=== PATIENT | female | born 1945 | race Caucasian/White ===

== ENCOUNTER 2020-10-05 12:30 | Inpatient (IN) ==
[~2020-10-05 12:30] MED LIST: OPTIRAY 320 125ml IV ONE
[2020-10-05] MEDS ORDERED: SODIUM CHLORIDE 0.9% 1000ML 500 ML IV ONE ×2 (13:02→14:30)
--- NOTE | 2020-10-05 13:02 | CT Scan Report ---
CT head/brain wo con CLINICAL HISTORY: Stroke Like Symptoms RIGHT FACIAL DROOP COMPARISON STUDY: 09/30/2020 TECHNIQUE: Axial CT of the brain is performed from the vertex to the skull base. IV contrast was not administered for this examination. A dose lowering technique was utilized adhering to the principles of ALARA. CT DOSE: FINDINGS: No intra or extra-axial mass lesions are visualized. There is no CT evidence of acute cortical infarc tion. There is no evidence of midline shift. There is no acute hemorrhage. No calvarial fractures ar e visualized. There are patchy white matter hypodensities likely on a small vessel basis. There is no evidence of pathologic ventricular dilatation. There is no evidence of acute sinusitis There is a metallic foreign body within the left orbit. The patient appears be status post a left ocu lar banding procedure. IMPRESSION: 1. Suboptimal examination with significant motion degradation. 2. No acute intracranial findings given the technical limitations of the study 3. Metallic foreign body within the left orbit ACT 112: Negative or not required by law. Electronically signed by: Leeroy Alcantar M.D. 10/05/2020 1:01 PM
--- NOTE | 2020-10-05 13:06 | CT Scan Report ---
HEAD & NECK CTA HISTORY: Right-sided facial droop. Stroke Like Symptoms TECHNIQUE: Multiaxial CT images of the head were performed following the intravenous administration o f contrast to evaluate the major cerebral vessels. Multiaxial CT images of the neck were also perform ed following the intravenous administration of contrast to evaluate the major cervical vessels. Maxim um intensity projection images were also obtained. A dose lowering technique was utilized adhering to the principles of ALARA. COMPARISON: Head CT 09/30/2020. FINDINGS: Significant motion artifact. No high-grade stenosis or occlusion within the intracranial internal car otid arteries, distal vertebral arteries, and basilar. No high-grade stenosis or occlusion seen withi n the bilateral ACAs, MCAs, or rejogger. Focal fenestration seen within the distal intracranial portion o f the right vertebral artery. This is considered to be a normal variant. The aortic arch and proximal great vessels are widely patent. There is no significant stenosis, occ lusion, or dissection identified within the bilateral common carotid, internal carotid, or left verte bral artery. Mild focal stenosis at the takeoff of the right vertebral artery. There is mild calcifie d plaque within the bilateral carotid bifurcations. A 4 cm left thyroid nodule. IMPRESSION: 1. Significant motion artifact within the brain. No definite high-grade stenosis or occlusion within the [place]. 2. No significant stenosis, occlusion, or dissection identified within the carotid or left vertebral arteries. Mild focal narrowing at the takeoff of the right vertebral artery. 3. A 4 cm left thyroid nodule. ACT 112: Negative or not required by law. . Electronically signed by: Sameer Aguero M.D. 10/05/2020 1:05 PM
--- NOTE | 2020-10-05 13:06 | CT Scan Report ---
HEAD & NECK CTA HISTORY: Right-sided facial droop. Stroke Like Symptoms TECHNIQUE: Multiaxial CT images of the head were performed following the intravenous administration o f contrast to evaluate the major cerebral vessels. Multiaxial CT images of the neck were also perform ed following the intravenous administration of contrast to evaluate the major cervical vessels. Maxim um intensity projection images were also obtained. A dose lowering technique was utilized adhering to the principles of ALARA. COMPARISON: Head CT 09/30/2020. FINDINGS: Significant motion artifact. No high-grade stenosis or occlusion within the intracranial internal car otid arteries, distal vertebral arteries, and basilar. No high-grade stenosis or occlusion seen withi n the bilateral ACAs, MCAs, or dietary manager. Focal fenestration seen within the distal intracranial portion o f the right vertebral artery. This is considered to be a normal variant. The aortic arch and proximal great vessels are widely patent. There is no significant stenosis, occ lusion, or dissection identified within the bilateral common carotid, internal carotid, or left verte bral artery. Mild focal stenosis at the takeoff of the right vertebral artery. There is mild calcifie d plaque within the bilateral carotid bifurcations. A 4 cm left thyroid nodule. IMPRESSION: 1. Significant motion artifact within the brain. No definite high-grade stenosis or occlusion within the [place]. 2. No significant stenosis, occlusion, or dissection identified within the carotid or left vertebral arteries. Mild focal narrowing at the takeoff of the right vertebral artery. 3. A 4 cm left thyroid nodule. ACT 112: Negative or not required by law. . Electronically signed by: Sameer Aguero M.D. 10/05/2020 1:05 PM
[2020-10-05 13:16] LABS: Basophils # (auto) 0.01 K/uL (0-0.2); Basophils % (auto) 0.1 %; Eosinophils # (auto) 0.05 K/uL (0-0.5); Eosinophils % (auto) 0.6 %; Hematocrit (blood only) 41.2 % (37-47); Hemoglobin 13.3 g/dL (12.0-16.0); Immature Granulocytes # (auto) 0.04 K/uL (0.00-0.02); Immature Granulocytes % (auto) 0.4 %; Lymphocytes # (auto) 1.01 K/uL (1.2-3.4); Lymphocytes % (auto) 11.2 %; Mean Corpuscular Hemoglobin 29.3 pg (25-34); Mean Corpuscular Hgb Conc 32.3 g/dL (32-36); Mean Corpuscular Volume 90.7 fL (80-100); Mean Platelet Volume 9.7 fL (7.4-10.4); Monocytes # (auto) 0.56 K/uL (0.11-0.59); Monocytes % (auto) 6.2 %; Neutrophils # (auto) 7.33 K/uL (1.4-6.5); Neutrophils % (auto) 81.5 %; Platelet Count 281 K/uL (130-400); RDW Coefficient of Variation 14.3 % (11.5-14.5); RDW Standard Deviation 47.9 fL (36.4-46.3); Red Blood Count 4.54 M/uL (4.2-5.4)
[2020-10-05] MEDS ORDERED: MEROPENEM 500 MG in SYRINGE 0 ML IV STA (13:25)
[2020-10-05 13:41] LABS: INR 1.2 (0.9-1.1); Partial Thromboplastin Ratio 0.9; Partial Thromboplastin Time 23.8 Seconds (21.0-31.0)
[2020-10-05 13:52] LABS: Alanine Aminotransferase 17 U/L (12-78); Albumin Globulin Ratio 0.8 (0.9-2); Alkaline Phosphatase 83 U/L (45-117); Aspartate Aminotransferase 24 U/L (15-37); BUN Creatinine Ratio 12.6 (10-20); Bilirubin,Total 0.5 mg/dl (0.2-1); Blood Urea Nitrogen 15 mg/dl (7-18); Calcium 9.3 mg/dl (8.5-10.1); Carbon Dioxide 26 mmol/L (21-32); Chloride 108 mmol/L (98-107); Creatinine Clr Calc Pharmacy 34.7 ml/min; Est GFR (Non-African American) 43.1; Globulin 3.6 gm/dl (2.5-4.0); Glucose 115 mg/dl (70-99); Magnesium 2.2 mg/dl (1.8-2.4); Potassium 4.3 mmol/L (3.5-5.1); Sodium 139 mmol/L (136-145); Total Protein 6.6 gm/dl (6.4-8.2); Troponin I < 0.015 ng/ml (0-0.045)
[2020-10-05] MEDS: SODIUM CHLORIDE 0.9% 1000ML 1,000 ML IV SCH ×2 (13:53→20:17)
--- NOTE | 2020-10-05 14:03 | Emergency Department Note ---
Impression & Plan Acute alteration in mental status, Urinary tract infection, Acute hypotension, COVID-19 virus detected ED Provider Note NAME: HEIDI HOPKINS AGE: 75 SEX: F : 1945 ARRIVES VIA: Ambulance INFORMANT: Patient, prehospital personnel as well as the inpatient rehab documentation. I also discussed the patient's condition with her daughter ED PROVIDER(S): Ashwin Ross DO CHIEF COMPLAINT: Strokelike symptoms HPI: The patient is a 75-year-old female who presented to the emergency department from [facility] for an evaluation of strokelike symptoms. The patient has a history of paroxysmal atrial fibrillation. She also was recently diagnosed with COVID-19 and has a history of recurrent urinary tract infections. She is taking amoxicillin for the urinary tract infection. The patient is receiving enoxaparin at the inpatient rehab. Her last dose was last evening. The patient was in her normal state of health and was at physical therapy at approximately 1045 this morning. She was noted to have an acute alteration in h er mental status where she became less responsive and was noted to have right facial droop as well as right upper extremity weakness. The patient initially was observed because she is had similar symptoms in the past. When her symptoms did not rapidly improve 911 was called. The patient was evaluated by the prehospital personnel and was made a stroke alert prior to arrival. The patient was taken directly to CT. On my initial evaluation which occurred in CAT scan the patient had a right-sided facial droop. She appeared to have very pressured and slurred speech. At that time she was moving both upper and lower extremities well. She has a history of dementia and [facility] I called the patient's daughter while we are in CAT scan. We started to have a conversation about TPA if we felt the patient was a candidate however her condition rapidly improved. The patient herself denies having any headache nausea or vomiting. There is been no reported falls. She denies have any abdominal pain or lower extremity weakness. She was recently placed out of quarantine for Covid. ROS: See above HPI for pertinent positives & negatives. A total of 10 systems reviewed and were otherwise negative. PAST MEDICAL HISTORY: See Below PAST SURGICAL HISTORY: See Below FAMILY HISTORY: See Below SOCIAL HISTORY: See Below HOME MEDICATIONS: See Below ALLERGIES: See Below VITALS: See Below PHYSICAL EXAMINATION: GENERAL: The patient is listless and slow to respond to question. She does follow loud verbal commands slowly and appropriately. EYES: The conjunctivae are clear. The pupils are round and reactive. EARS, NOSE, MOUTH AND THROAT: The nose is without any evidence of any deformity. There is some buccal mucosal swelling on the right cheek. NECK: The neck is nontender and supple. RESPIRATORY: Normal respiratory effort is noted there is no evidence of wheezing rhonchi or rales CARDIOVASCULAR: Tachycardic and irregular heart sounds were noted to auscultation. No definite murmur was noted. GASTROINTESTINAL: The abdomen is soft. Abdomen is nontender. MUSCULOSKELETAL/EXTREMITIES: There is no evidence of gross deformity full range of motion is noted in the hips and shoulders. SKIN: Pedal edema was noted bilaterally. NEUROLOGIC: Patient is awake to loud verbal commands. She is oriented to person place but not time or situation. There is no drift noted in the upper extremities. Anesthesiologist Attending strength is symmetric. There is a right-sided facial droop sparing the forehead. MEDICAL DECISION MAKING: The patient is a 75-year-old female who presented to the emergency department for an evaluation of strokelike symptoms. The patient was made a stroke alert prior to arrival. She would not be a candidate for TPA given her current use of anticoagulation. She does have a history of atrial fibrillation so formal stroke alert was called and the patient had CT as well as CT angiography of the head and neck. There is no large vessel occlusion. There was no abnormality noted on CT of the head without contrast. The patient was discussed with the stroke alert neurologist at [facility]. While we were discussing the case the patient's condition slowly improved after IV fluids. She has a persistent urinary tract infection and was started on IV antibiotics in the emergency department. Her condition continued to improve. I did discuss her condition with her daughter twice. I was even able to face time the patient with her daughter and her symptoms appear to be significantly improved and her daughter would not like her to have TPA at this time even if she was a candidate for it. It was noted at that time that the patient may have some buccal mucosal swelling. There is no signs of infection otherwise. 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 The patient was further treated with IV fluids. Her Covid swab is still positive. Triage Nursing notes reviewed. Prior medical records reviewed Vital Signs: reviewed and remarkable for hypotension and tachycardia. Differential diagnosis: Infection, dehydration, metabolic abnormality, hypo/hyperglycemia, electrolyte disturbance, anemia, hypoxia, cardiac sources, intracerebral event, toxicologic, neurologic, as well as other pathologies. ER treatment provided: See below Diagnostics interpreted by me: ECG: EKG was obtained in the emergency department. My interpretation is atrial fibrillation at 123 bpm. There were no PVCs noted. Diffuse inferior and lateral ST depressions were noted. This was compared to a tracing from September 302019. There is an increase in the ventricular rate. The ST segment abnormalities appear more pronounced compared to the previous tracing. Cardiac Monitoring: An order was placed for continuous cardiac monitoring. The monitor shows a rate of 115 bpm with atrial fibrillation rhythm. Laboratory studies: As stated above and show below. Imaging studies: See below Consultation(s): 1255: I discussed this case with Dr. Starr who is on-call for the [place] telestroke neurology group. She evaluated the patient via the telestroke cart. 1250 and 1320: I discussed the patient's condition with her daughter Mae. Initially we talked about TPA and whether or not her mother was a candidate for this. I discussed the benefits and the risks as well as the possible indications. At this time her daughter would not like her to receive TPA because she feels this is more likely secondary to urinary tract infection. I do agree with that assessment at this time. I told her that if other information were to arise we could further discuss the possibility of TPA although given the patient's use of enoxaparin that was found by the ED pharmacist I do not feel she would be a candidate for TPA either way. I also was able to face time the patient with her daughter via telephone. She feels the patient's condition is improving rapidly and I agree. 1430: I discussed this case with Annmarie who is on-call for the [facility] hospitalist group. They have agreed to evaluate the patient in the emergency department for further management and disposition. 1500: I discussed this case with Dr. Silveira. ED COURSE: Procedures: none PDMP:reviewed and no issues Critical Care: I have personally spent greater than 45 minutes of critical care time in the direct management of this patient. This includes bedside care, interpretation of diagnostic studies, and testing, discussion with consultants, patient, and family members, and other required patient management activities. This 45 minutes is in excess of all separately billable procedures. Past Med/Surg History Medical History Acute hypokalemia Anemia Atrial fibrillation COVID-19 virus infection Malaise Mood disorder Surgical History H/O lumbosacral spine surgery Social History Smoking Status: Unknown if ever smoked Feels Safe at Home: Yes Results & Data (ED) Vital Signs Vital Signs - 24 hr 10/05/20 12:58 10/05/20 13:02 10/05/20 13:30 Temperature 37.4 C Temperature Source Oral Pulse Rate 138 H 101 H Pulse Rate from SpO2 Sensor 134 H 102 H Respiratory Rate 23 20 Blood Pressure 98/70 L 111/67 Blood Pressure Mean 75 79 Pulse Oximetry 93 92 Oxygen Delivery Method Room Air Room Air Sepsis Recent Fever Within 48 Hours No Sepsis New/Unexplained Change in Mental Status Yes Sepsis Action Taken by Nursing No Action Required 10/05/20 14:21 10/05/20 14:30 Temperature Temperature Source Pulse Rate 109 H 107 H Pulse Rate from SpO2 Sensor 104 H 107 H Respiratory Rate 28 H 19 Blood Pressure 92/58 L 102/49 L Blood Pressure Mean 75 54 Pulse Oximetry 94 92 Oxygen Delivery Method Room Air Room Air Sepsis Recent Fever Within 48 Hours Sepsis New/Unexplained Change in Mental Status Sepsis Action Taken by Long Term Medications Current Medication List: was personally reviewed by me Laboratory Data Attestation: I reviewed the patient's lab results. Result diagrams: 10/05/20 13:07 10/05/20 13:07 Lab Results 10/05/20 10/05/20 10/05/20 Range/Units 13:01 13:07 13:07 WBC 9.00 (4.8-10.8) K/uL RBC 4.54 (4.2-5.4) M/uL Hgb 13.3 (12.0-16.0) g/dL Hct 41.2 (37-47) % MCV 90.7 (80-100) fL MCH 29.3 (25-34) pg MCHC 32.3 (32-36) g/dL RDW Std Deviation 47.9 H (36.4-46.3) fL RDW Coeff of Arnav 14.3 (11.5-14.5) % Plt Count 281 (130-400) K/uL MPV 9.7 (7.4-10.4) fL Immature Gran % (Auto) 0.4 % Neut % (Auto) 81.5 % Lymph % (Auto) 11.2 % [place] % (Auto) 6.2 % Eos % (Auto) 0.6 % Baso % (Auto) 0.1 % Neut # (Auto) 7.33 H (1.4-6.5) K/uL Lymph # (Auto) 1.01 L (1.2-3.4) K/uL [place] # (Auto) 0.56 (0.11-0.59) K/uL Eos # (Auto) 0.05 (0-0.5) K/uL Baso # (Auto) 0.01 (0-0.2) K/uL Immature Gran # (Auto) 0.04 H (0.00-0.02) K/uL PT 13.0 H (9.0-12.0) Seconds INR 1.2 H (0.9-1.1) APTT 23.8 (21.0-31.0) Seconds PTT Ratio 0.9 Sodium (136-145) mmol/L Potassium (3.5-5.1) mmol/L Chloride (98-107) mmol/L Carbon Dioxide (21-32) mmol/L Anion Gap (3-11) BUN (7-18) mg/dl Creatinine (0.6-1.2) mg/dl Est Cr Clr Drug Dosing ml/min Est GFR ( Amer) Est GFR (Non-Af Amer) BUN/Creatinine Ratio (10-20) Glucose (70-99) mg/dl POC Glucose 125 H (70-99) mg/dl Lactate (0.4-2.0) mmol/L Calcium (8.5-10.1) mg/dl Magnesium (1.8-2.4) mg/dl Total Bilirubin (0.2-1) mg/dl AST (15-37) U/L ALT (12-78) U/L Alkaline Phosphatase (45-117) U/L Troponin I (0-0.045) ng/ml Total Protein (6.4-8.2) gm/dl Albumin (3.4-5.0) gm/dl Globulin (2.5-4.0) gm/dl Albumin/Globulin Ratio (0.9-2) Specimen Hemolysis Urine Color Urine Appearance (Clear) Urine pH (4.5-7.5) Ur Specific [place] (1.000-1.030) Urine Protein (Negative) Urine Glucose (UA) (Negative) Urine Ketones (Negative) Urine Blood (Negative) Urine Nitrite (Negative) Urine Bilirubin (Negative) Urine Urobilinogen (Negative) Ur Leukocyte Esterase (Negative) [place] (0.6-1.2) mmol/L SARS-CoV-2, RNA, NAAT (NEGATIVE) SARS-CoV-2 Ag (Rapid) (Negative) Blood Type Recheck 10/05/20 10/05/20 10/05/20 Range/Units 13:07 13:07 13:09 WBC (4.8-10.8) K/uL RBC (4.2-5.4) M/uL Hgb (12.0-16.0) g/dL Hct (37-47) % MCV (80-100) fL MCH (25-34) pg MCHC (32-36) g/dL RDW Std Deviation (36.4-46.3) fL RDW Coeff of Arnav (11.5-14.5) % Plt Count (130-400) K/uL MPV (7.4-10.4) fL Immature Gran % (Auto) % Neut % (Auto) % Lymph % (Auto) % [place] % (Auto) % Eos % (Auto) % Baso % (Auto) % Neut # (Auto) (1.4-6.5) K/uL Lymph # (Auto) (1.2-3.4) K/uL [place] # (Auto) (0.11-0.59) K/uL Eos # (Auto) (0-0.5) K/uL Baso # (Auto) (0-0.2) K/uL Immature Gran # (Auto) (0.00-0.02) K/uL PT (9.0-12.0) Seconds INR (0.9-1.1) APTT (21.0-31.0) Seconds PTT Ratio Sodium 139 (136-145) mmol/L Potassium 4.3 (3.5-5.1) mmol/L Chloride 108 H (98-107) mmol/L Carbon Dioxide 26 (21-32) mmol/L Anion Gap 5.0 (3-11) BUN 15 (7-18) mg/dl Creatinine 1.21 H (0.6-1.2) mg/dl Est Cr Clr Drug Dosing 34.7 ml/min Est GFR ( Amer) 50.0 Est GFR (Non-Af Amer) 43.1 BUN/Creatinine Ratio 12.6 (10-20) Glucose 115 H (70-99) mg/dl POC Glucose (70-99) mg/dl Lactate (0.4-2.0) mmol/L Calcium 9.3 (8.5-10.1) mg/dl Magnesium 2.2 (1.8-2.4) mg/dl Total Bilirubin 0.5 (0.2-1) mg/dl AST 24 (15-37) U/L ALT 17 (12-78) U/L Alkaline Phosphatase 83 (45-117) U/L Troponin I < 0.015 (0-0.045) ng/ml Total Protein 6.6 (6.4-8.2) gm/dl Albumin 3.0 L (3.4-5.0) gm/dl Globulin 3.6 (2.5-4.0) gm/dl Albumin/Globulin Ratio 0.8 L (0.9-2) Specimen Hemolysis Urine Color Urine Appearance (Clear) Urine pH (4.5-7.5) Ur Specific [place] (1.000-1.030) Urine Protein (Negative) Urine Glucose (UA) (Negative) Urine Ketones (Negative) Urine Blood (Negative) Urine Nitrite (Negative) Urine Bilirubin (Negative) Urine Urobilinogen (Negative) Ur Leukocyte Esterase (Negative) [place] 0.9 (0.6-1.2) mmol/L SARS-CoV-2, RNA, NAAT (NEGATIVE) SARS-CoV-2 Ag (Rapid) (Negative) Blood Type Recheck A Positive 10/05/20 10/05/20 10/05/20 Range/Units 13:45 13:52 14:00 WBC (4.8-10.8) K/uL RBC (4.2-5.4) M/uL Hgb (12.0-16.0) g/dL Hct (37-47) % MCV (80-100) fL MCH (25-34) pg MCHC (32-36) g/dL RDW Std Deviation (36.4-46.3) fL RDW Coeff of Arnav (11.5-14.5) % Plt Count (130-400) K/uL MPV (7.4-10.4) fL Immature Gran % (Auto) % Neut % (Auto) % Lymph % (Auto) % [place] % (Auto) % Eos % (Auto) % Baso % (Auto) % Neut # (Auto) (1.4-6.5) K/uL Lymph # (Auto) (1.2-3.4) K/uL [place] # (Auto) (0.11-0.59) K/uL Eos # (Auto) (0-0.5) K/uL Baso # (Auto) (0-0.2) K/uL Immature Gran # (Auto) (0.00-0.02) K/uL PT (9.0-12.0) Seconds INR (0.9-1.1) APTT (21.0-31.0) Seconds PTT Ratio Sodium (136-145) mmol/L Potassium (3.5-5.1) mmol/L Chloride (98-107) mmol/L Carbon Dioxide (21-32) mmol/L Anion Gap (3-11) BUN (7-18) mg/dl Creatinine (0.6-1.2) mg/dl Est Cr Clr Drug Dosing ml/min Est GFR ( Amer) Est GFR (Non-Af Amer) BUN/Creatinine Ratio (10-20) Glucose (70-99) mg/dl POC Glucose (70-99) mg/dl Lactate (0.4-2.0) mmol/L Calcium (8.5-10.1) mg/dl Magnesium (1.8-2.4) mg/dl Total Bilirubin (0.2-1) mg/dl AST (15-37) U/L ALT (12-78) U/L Alkaline Phosphatase (45-117) U/L Troponin I (0-0.045) ng/ml Total Protein (6.4-8.2) gm/dl Albumin (3.4-5.0) gm/dl Globulin (2.5-4.0) gm/dl Albumin/Globulin Ratio (0.9-2) Specimen Hemolysis Urine Color Dark Yellow Urine Appearance Turbid A (Clear) Urine pH 7.0 (4.5-7.5) Ur Specific [place] 1.027 (1.000-1.030) Urine Protein 1+ H (Negative) Urine Glucose (UA) Negative (Negative) Urine Ketones Trace H (Negative) Urine Blood 1+ H (Negative) Urine Nitrite Negative (Negative) Urine Bilirubin Negative (Negative) Urine Urobilinogen Negative (Negative) Ur Leukocyte Esterase 3+ H (Negative) [place] (0.6-1.2) mmol/L SARS-CoV-2, RNA, NAAT POSITIVE A* (NEGATIVE) SARS-CoV-2 Ag (Rapid) Positive A* (Negative) Blood Type Recheck 10/05/20 Range/Units 14:20 WBC (4.8-10.8) K/uL RBC (4.2-5.4) M/uL Hgb (12.0-16.0) g/dL Hct (37-47) % MCV (80-100) fL MCH (25-34) pg MCHC (32-36) g/dL RDW Std Deviation (36.4-46.3) fL RDW Coeff of Arnav (11.5-14.5) % Plt Count (130-400) K/uL MPV (7.4-10.4) fL Immature Gran % (Auto) % Neut % (Auto) % Lymph % (Auto) % [place] % (Auto) % Eos % (Auto) % Baso % (Auto) % Neut # (Auto) (1.4-6.5) K/uL Lymph # (Auto) (1.2-3.4) K/uL [place] # (Auto) (0.11-0.59) K/uL Eos # (Auto) (0-0.5) K/uL Baso # (Auto) (0-0.2) K/uL Immature Gran # (Auto) (0.00-0.02) K/uL PT (9.0-12.0) Seconds INR (0.9-1.1) APTT (21.0-31.0) Seconds PTT Ratio Sodium (136-145) mmol/L Potassium (3.5-5.1) mmol/L Chloride (98-107) mmol/L Carbon Dioxide (21-32) mmol/L Anion Gap (3-11) BUN (7-18) mg/dl Creatinine (0.6-1.2) mg/dl Est Cr Clr Drug Dosing ml/min Est GFR ( Amer) Est GFR (Non-Af Amer) BUN/Creatinine Ratio (10-20) Glucose (70-99) mg/dl POC Glucose (70-99) mg/dl Lactate 1.5 (0.4-2.0) mmol/L Calcium (8.5-10.1) mg/dl Magnesium (1.8-2.4) mg/dl Total Bilirubin (0.2-1) mg/dl AST (15-37) U/L ALT (12-78) U/L Alkaline Phosphatase (45-117) U/L Troponin I (0-0.045) ng/ml Total Protein (6.4-8.2) gm/dl Albumin (3.4-5.0) gm/dl Globulin (2.5-4.0) gm/dl Albumin/Globulin Ratio (0.9-2) Specimen Hemolysis Urine Color Urine Appearance (Clear) Urine pH (4.5-7.5) Ur Specific [place] (1.000-1.030) Urine Protein (Negative) Urine Glucose (UA) (Negative) Urine Ketones (Negative) Urine Blood (Negative) Urine Nitrite (Negative) Urine Bilirubin (Negative) Urine Urobilinogen (Negative) Ur Leukocyte Esterase (Negative) [place] (0.6-1.2) mmol/L SARS-CoV-2, RNA, NAAT (NEGATIVE) SARS-CoV-2 Ag (Rapid) (Negative) Blood Type Recheck Administered Medications Sodium Chloride (Nss 1000ml) 1,000 mls @ 50 mls/hr IV .Q20H EMILY Stop: 11/04/20 12:29 Last Admin: 10/05/20 13:53 Dose: 50 mls/hr Documented by: [id number] Discontinued Medications Sodium Chloride (Nss 1000ml) 500 mls @ 999 mls/hr IV .Q31M ONE Stop: 10/05/20 13:32 Last Infusion: 10/05/20 13:53 Dose: 0 mls/hr Documented by: [id number] Admin: 10/05/20 13:15 Dose: 999 mls/hr Documented by: [id number] Meropenem 500 mg/ Syringe 10 mls @ 2 mls/min IV NOW STA; Protocol Stop: 10/05/20 13:29 Last Admin: 10/05/20 14:10 Dose: 2 mls/min Documented by: [id number] Sodium Chloride (Nss 1000ml) 500 mls @ 999 mls/hr IV .Q31M ONE Stop: 10/05/20 15:00 Last Admin: 10/05/20 14:37 Dose: 999 mls/hr Documented by: [id number] Ioversol (Optiray 320 125ml) 119 ml IV ONCE ONE Stop: 10/05/20 12:31 Last Admin: 10/05/20 12:31 Dose: 119 ml Documented by: [id number] Imaging Data Radiologist's Impression: Patient: HEIDI HOPKINS Admit Date: 10/05/20 MR#: [id number] Address1: [address] [facility] Acct ID:[id number] Address2: Date: 1945 [facility] Zip: [place] [address] Age: 75 Location: ED Sex: F Room/Bed: Att Phy: Diagnosis: Right facial 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 Stroke Like Symptoms TECHNIQUE: Multiaxial CT images of the head were performed following the intravenous administration of contrast to evaluate the major cerebral vessels. Multiaxial CT images of the neck were also performed following the intravenous administration of contrast to evaluate the major cervical vessels. Maximum intensity projection images were also obtained. A dose lowering technique was u tilized adhering to the principles of ALARA. COMPARISON: Head CT 09/30/2020. FINDINGS: Significant motion artifact. No high-grade stenosis or occlusion within the intracranial internal carotid arteries, distal vertebral arteries, and basilar. No high-grade stenosis or occlusion seen within the bilateral ACAs, MCAs, or supplier specialist. Focal fenestration seen within the distal intracranial portion of the right vertebral artery. This is considered to be a normal variant. The aortic arch and proximal great vessels are widely patent. There is no significant stenosis, occlusion, or dissection identified within the bilateral common carotid, internal carotid, or left vertebral artery. Mild focal stenosis at the takeoff of the right vertebral artery. There is mild calcified plaque within the bilateral carotid bifurcations. A 4 cm left thyroid nodule. IMPRESSION: 1. Significant motion artifact within the brain. No definite high-grade stenosis or occlusion within the [place]. 2. No significant stenosis, occlusion, or dissection identified within the carotid or left vertebral arteries. Mild focal narrowing at the takeoff of the right vertebral artery. 3. A 4 cm left thyroid nodule. ACT 112: Negative or not required by law. . Electronically signed by: Sameer Aguero M.D. 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 IV contrast was not administered for this examination. A dose lowering technique was utilized adhering to the principles of ALARA. CT DOSE: FINDINGS: No intra or extra-axial mass lesions are visualized. There is no CT evidence of acute cortical infarction. There is no evidence of midline shift. There is no acute hemorrhage. No calvarial fractures are visualized. There are patchy white matter hypodensities likely on a small vessel basis. There is no evidence of pathologic ventricular dilatation. There is no evidence of acute sinusitis There is a metallic foreign body within the left orbit. The patient appears be status post a left ocular banding procedure. IMPRESSION: 1. Suboptimal examination with significant motion degradation. 2. No acute intracranial findings given the technical limitations of the study 3. Metallic foreign body within the left orbit ACT 112: Negative or not required by law. Electronically signed by: Leeroy Alcantar M.D. 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 [Primary Care Provider] - Discharge Problem: Urinary tract infection Qualifiers: Urinary tract infection type: site unspecified Hematuria presence: without hematuria Qualified Code(s): N39.0 - Urinary tract infection, site not specified
--- NOTE | 2020-10-05 14:35 | XRay Report ---
XR chest 1V portable HISTORY: Right-sided facial droop. Stroke Like Symptoms COMPARISON: Chest 09/30/2020. FINDINGS: There are low lung volumes. No pneumothorax. No pleural effusions. There is slight progress ion of the perihilar interstitial vascular thickening consistent with mild congestive change. The hea rt remains mildly enlarged. There is a small to moderate hiatus hernia. Thoracic spinal fusion rods a re again noted. There are old, healed right-sided rib fractures. IMPRESSION: 1. Cardiomegaly with mild central pulmonary vascular congestion without overt edema. 2. Low lung volumes. ACT 112: Negative or not required by law. Electronically signed by: Sameer Aguero M.D. 10/05/2020 2:34 PM
[2020-10-05 14:40] LABS: Appearance Urine Turbid (Clear); Bacteria Urine Automated Negative (Negative); Bilirubin Urine Negative (Negative); Blood Urine 1+ (Negative); Color Urine Dark Yellow; Epithelial Cell Urine Auto >30 /lpf (0-5); Glucose Urine UA Negative (Negative); Ketones Urine Trace (Negative); Leukocyte Esterase Urine 3+ (Negative); Nitrite Urine Negative (Negative); Protein Urine 1+ (Negative); Specific Gravity Urine 1.027 (1.000-1.030); Urobilinogen Urine Negative (Negative); WBC Urine Automated >30 /hpf (0-5)
[2020-10-05 15:51] LABS: Cast Urine Automated 0 /lpf (0-5)
--- NOTE | 2020-10-05 16:38 | History & Physical Report ---
Date of Service October 05, 2020 Assessment & Plan (1) Stroke-like symptoms: Presented with acute onset of right-sided weakness and right-sided facial droop while working with physical therapy at the rehab Right-sided weakness improved rapidly, right facial droop may be chronic as per daughter CT angiogram head and neck negative CT head negative Blood pressures were actually low when she arrived Telemetry stroke consult did not recommend TPA as she had been on Lovenox SQ and had rapid improvement of symptoms With altered mental status which may be due to UTI versus stroke -Admit to PCU, Covid unit due to recent infection -Start Plavix in the morning Speech therapy consultation, PT/OT Neuro consult Neuro checks and daily NIH scale Continue atorvastatin, check lipid panel and hemoglobin A1c in the morning Permissive hypertension-hold all BP meds except giving Lopressor for rate con trol with possible atrial fibrillation as below -Continue normal saline at 125 mL's per hour -Check MRI brain (2) Acute metabolic encephalopathy: Secondary to stroke versus UTI as above Treating UTI Stroke work-up as above Has a long history of encephalopathy as per daughter every time she has UTI (3) Urinary tract infection: Abnormal urinalysis Has a history of ESBL E. coli UTI and recent Enterococcus UTI Continue with meropenem Follow cultures Needs follow-up with urology as an outpatient after discharge for recurrent UTIs Holding home prophylactic Cipro and nitrofurantoin (4) Atrial fibrillation: With suspected rapid atrial fibrillation on ECG on arrival No chest pain, troponin is negative Rate control with IV Lopressor 2.5 mg IV every 6 hours until taking her usual p.o. metoprolol Daughter reports that she had atrial fibrillation and was on Eliquis for about 2 months last year but then was taken off of it as per cardiology as it was decided she had lone A. fib from the stress of the hospitalization for UTI at that time -Hold off on anticoagulation at this time due to possible acute stroke until after MRI is obtained and in consultation with neurology and cardiology -Monitor on telemetry -Checking echocardiogram (5) COVID-19 virus infection: Diagnosed on 09/25, has not really had many symptoms at all except for poor appetite as per daughter and some altered mental status at times which may have been from Covid versus UTI Precautions at least until tomorrow would be day 10 Can consider removing precautions at that time Chest x-ray without pneumonia, she is not hypoxic (6) Recurrent UTI: As above Needs follow-up with urology as an outpatient (7) HTN (hypertension), benign: Holding home meds as above except metoprolol (8) Hyperlipidemia: Continue statin Checking lipid panel in the morning (9) Osteopenia: Noted With history of pelvic and hip fractures (10) Bipolar disorder: Continue home meds once can take p.o. (11) DVT prophylaxis: Lovenox SQ, SCDs Disposition-admit to PCU telemetry History of Present Illness Chief Complaint: Right-sided weakness, altered mental status Primary Care Provider: [facility] This patient is a 75-year-old female with a history of spinal fusion surgery in the end of August, paroxysmal atrial fibrillation no longer on anticoagulation, HTN, osteopenia, depression and bipolar disorder, pneumonia, and severe numerous recurrent UTIs. She had spinal fusion surgery the beginning of August and went to [facility]hab in [place] for 2 weeks. She then went home for 24 hours and returned to the hospital with altered mental status and had a UTI for which she was admitted. She then was discharged to [facility] in [facility] where she has been for the 3 weeks. She developed Covid- 19 with a positive test on 09/25. She was asymptomatic with this for the most part as per notes from the rehab without fevers or hypoxia, however she has had some altered mental status intermittently there and confusion. Her daughter reports to me on the phone that the patient is perfectly mentally clear when she does not have a urinary tract infection, however she has had 10 urinary tract infections in the last year alone. She has been in and out of the hospital multiple times with this. The daughter also reports and insists that the patient has been extensively tested for dementia and does not have dementia including having brain imaging and neuropsychological testing at her doctor in [place] where she resided until 1 year ago. She was recently treated for an ESBL E. coli UTI with levofloxacin a few weeks ago and then also had an Enterococcus UTI at the rehab where she was being treated with amoxicillin for the last couple of days. Today, around 11 AM, she was noted to have right-sided weakness and a right- sided facial droop. The daughter reports the patient always has somewhat of a right facial droop but weakness on the right would be new. She was brought in as a stroke alert to the ER and was completely confused. She is not able to tell me any history at all but does denies pain anywhere, specifically chest pain and headache. Because she was on subcu Lovenox for DVT prophylaxis and because of the rapid improvement in right-sided weakness-she was able to move the right side of her body when she got in the ER-she was not a candidate for TPA as per telemetry stroke consultation. CT of the head was negative, CT angiogram of the head neck was negative in the ER. She was found to have UTI and abnormal urinalysis. Her ECG was with possible rapid atrial fibrillation versus accelerated junctional rhythm and PACs with some lateral ST depression. As per the ER doctor, she did have significant improvement in her mental status with being given IV fluids. She was also given IV meropenem for her UTI. Her Covid test was still positive at this time. Ultimately, the telemetry stroke neurologist felt this was more likely consistent with a toxic metabolic syndrome rather than a stroke. She will be admitted for stroke work-up and continued treatment of her acute metabolic encephalopathy and UTI as well as for suspected rapid atrial fibrillation. Allergies Allergy/AdvReac Type Severity Reaction Status Date / Time aspirin Allergy Unknown Unverified 10/05/20 15:59 Home Medications Medication Instructions Recorded Confirmed Type acetaminophen [Tylenol] 650 mg PO Q4H PRN 10/05/20 10/05/20 History amlodipine 10 mg PO QAM 10/05/20 10/05/20 History amoxicillin 250 mg PO TID 10/05/20 10/05/20 History ascorbic acid (vitamin C) 500 mg PO BID 10/05/20 10/05/20 History atorvastatin 10 mg PO PM 10/05/20 10/05/20 History bisacodyl 10 mg MN DAILY PRN 10/05/20 10/05/20 History bupropion HCl 300 mg PO QAM 10/05/20 10/05/20 History cholecalciferol (vitamin D3) 50 mcg PO DAILY 10/05/20 10/05/20 History ciprofloxacin HCl [Cipro] 250 mg PO QAM 10/05/20 10/05/20 History diazepam 2 mg PO QID PRN 10/05/20 10/05/20 History docusate sodium 100 mg PO BID 10/05/20 10/05/20 History enoxaparin 40 mg SUBCUT QPM 10/05/20 10/05/20 History famotidine 20 mg PO QAM 10/05/20 10/05/20 History guaifenesin [Mucinex] 600 mg PO BID 10/05/20 10/05/20 History lisinopril 20 mg PO QAM 10/05/20 10/05/20 History lithium carbonate 300 mg PO HS 10/05/20 10/05/20 History magnesium hydroxide [Milk Of 30 ml PO DAILY PRN 10/05/20 10/05/20 History Magnesia Concentrated] melatonin 3 mg PO HS 10/05/20 10/05/20 History metoprolol tartrate 25 mg PO BID 10/05/20 10/05/20 History nitrofurantoin macrocrystal 100 mg PO HS 10/05/20 10/05/20 History ondansetron HCl 4 mg PO Q4H PRN 10/05/20 10/05/20 History pantoprazole 40 mg PO QAM 10/05/20 10/05/20 History polyethylene glycol 3350 17 g PO DAILY 10/05/20 10/05/20 History sennosides-docusate sodium 1 tab-cap PO .@LUNCH 10/05/20 10/05/20 History [Senokot-S] sertraline 100 mg PO QAM 10/05/20 10/05/20 History zinc sulfate 220 mg PO QAM 10/05/20 10/05/20 History Past Med/Surg History Medical History Anemia Atrial fibrillation Bipolar disorder COVID-19 virus infection HTN (hypertension), benign Hyperlipidemia Malaise Mood disorder Osteopenia Recurrent UTI Surgical History (Updated 10/05/20 @ 23:38 by Renetta Silveira MD) H/O lumbosacral spine surgery History of detached retina repair History of hysterectomy History of repair of hip fracture Family History Other Family history non-contributory Social History Smoking Status: Never smoker Hx Alcohol Use: No Hx Substance Use: No Current Living Situation: Family Current Living Situation Comment: Currently in rehab, but usually lives with her daughter Feels Safe at Home: Yes Review of Systems Review of Systems: All systems reviewed & are unremarkable except as noted in HPI & below Physical Exam Constitutional: well developed, + ill appearing and + disheveled; no acute distress Unable to follow many commands consistently Eyes: PERRL, conjunctivae normal, anicteric sclerae ENMT: external ear and nose normal, oropharynx normal Ears: no hearing impairment Positive right-sided facial droop, no swelling of the lips or cheeks Neck: trachea midline, no thyromegaly Respiratory: normal respiratory effort, lungs clear to auscultation Cardiovascular: Rate/Rhythm: + tachycardic and + irregularly irregular Heart Sounds: no murmur Extremities: no calf tenderness and no edema Chest (Breasts): Chest: normal inspection of chest Gastrointestinal (Abdomen): normal bowel sounds, soft, nontender, no hepatosplenomegaly Musculoskeletal: Extremities: extremities normal to inspection; no cyanosis and no clubbing Skin: no rashes, warm and dry Neurologic: moves all extremities, + focal motor deficit (4/5 strength of the right upper extremity, otherwise 5/5 throughout) and awake; + CN's not intact (Unable to cooperate for testing, but does have right-sided facial droop ) Negative pronator drift of the upper extremities Psychiatric: Orientation: alert (But intermittently drowsy) and oriented to person; + not oriented to place and + not oriented to time Eye Contact: + fair eye contact Affect: + flat affect Genitourinary: Khalil catheter with dark yellow urine Lymphatic: no lymphedema Results & Data Results & Data ([facility]) Vital Signs (Past 12 Hours) Vital Signs Temp Pulse Resp BP Pulse Ox 10/05/20 16:01 105 H 24 112/76 97 10/05/20 16:00 103 H 18 98 10/05/20 15:30 20 10/05/20 15:01 110 H 24 94 10/05/20 15:00 83 21 120/65 93 10/05/20 14:30 107 H 19 102/49 L 92 10/05/20 14:21 109 H 28 H 92/58 L 94 10/05/20 13:30 101 H 20 111/67 92 10/05/20 13:02 138 H 23 98/70 L 93 10/05/20 12:58 37.4 C Laboratory Results 12/16/20 12/16/20 12/16/20 Range/Units 14:20 14:00 13:52 WBC (4.8-10.8) K/uL RBC (4.2-5.4) M/uL Hgb (12.0-16.0) g/dL Hct (37-47) % MCV (80-100) fL MCH (25-34) pg MCHC (32-36) g/dL RDW Std Deviation (36.4-46.3) fL RDW Coeff of Arnav (11.5-14.5) % Plt Count (130-400) K/uL MPV (7.4-10.4) fL Immature Gran % (Auto) % Neut % (Auto) % Lymph % (Auto) % Gilchrist % (Auto) % Eos % (Auto) % Baso % (Auto) % Neut # (Auto) (1.4-6.5) K/uL Lymph # (Auto) (1.2-3.4) K/uL Gilchrist # (Auto) (0.11-0.59) K/uL Eos # (Auto) (0-0.5) K/uL Baso # (Auto) (0-0.2) K/uL Immature Gran # (Auto) (0.00-0.02) K/uL PT (9.0-12.0) Seconds INR (0.9-1.1) APTT (21.0-31.0) Seconds PTT Ratio Sodium (136-145) mmol/L Potassium (3.5-5.1) mmol/L Chloride (98-107) mmol/L Carbon Dioxide (21-32) mmol/L Anion Gap (3-11) BUN (7-18) mg/dl Creatinine (0.6-1.2) mg/dl Est Cr Clr Drug Dosing ml/min Est GFR ( Amer) Est GFR (Non-Af Amer) BUN/Creatinine Ratio (10-20) Glucose (70-99) mg/dl POC Glucose (70-99) mg/dl Lactate 1.5 (0.4-2.0) mmol/L Calcium (8.5-10.1) mg/dl Magnesium (1.8-2.4) mg/dl Total Bilirubin (0.2-1) mg/dl AST (15-37) U/L ALT (12-78) U/L Alkaline Phosphatase (45-117) U/L Troponin I (0-0.045) ng/ml Total Protein (6.4-8.2) gm/dl Albumin (3.4-5.0) gm/dl Globulin (2.5-4.0) gm/dl Albumin/Globulin Ratio (0.9-2) Specimen Hemolysis Urine Color Urine Appearance (Clear) Urine pH (4.5-7.5) Ur Specific [place] (1.000-1.030) Urine Protein (Negative) Urine Glucose (UA) (Negative) Urine Ketones (Negative) Urine Blood (Negative) Urine Nitrite (Negative) Urine Bilirubin (Negative) Urine Urobilinogen (Negative) Ur Leukocyte Esterase (Negative) Urine WBC (Auto) (0-5) /hpf Urine RBC (Auto) (0-4) /hpf U Hyaline Cast (Auto) (0-5) /lpf U Epithel Cells (Auto) (0-5) /lpf Urine Bacteria (Auto) (Negative) Urine Yeast Urine Sperm [place] (0.6-1.2) mmol/L SARS-CoV-2, RNA, NAAT POSITIVE A* (NEGATIVE) SARS-CoV-2 Ag (Rapid) Positive A* (Negative) Blood Type Recheck 10/05/20 10/05/20 10/05/20 Range/Units 13:45 13:09 13:07 WBC (4.8-10.8) K/uL RBC (4.2-5.4) M/uL Hgb (12.0-16.0) g/dL Hct (37-47) % MCV (80-100) fL MCH (25-34) pg MCHC (32-36) g/dL RDW Std Deviation (36.4-46.3) fL RDW Coeff of Arnav (11.5-14.5) % Plt Count (130-400) K/uL MPV (7.4-10.4) fL Immature Gran % (Auto) % Neut % (Auto) % Lymph % (Auto) % Gilchrist % (Auto) % Eos % (Auto) % Baso % (Auto) % Neut # (Auto) (1.4-6.5) K/uL Lymph # (Auto) (1.2-3.4) K/uL [place]christ # (Auto) (0.11-0.59) K/uL Eos # (Auto) (0-0.5) K/uL Baso # (Auto) (0-0.2) K/uL Immature Gran # (Auto) (0.00-0.02) K/uL PT (9.0-12.0) Seconds INR (0.9-1.1) APTT (21.0-31.0) Seconds PTT Ratio Sodium (136-145) mmol/L Potassium (3.5-5.1) mmol/L Chloride (98-107) mmol/L Carbon Dioxide (21-32) mmol/L Anion Gap (3-11) BUN (7-18) mg/dl Creatinine (0.6-1.2) mg/dl Est Cr Clr Drug Dosing ml/min Est GFR ( Amer) Est GFR (Non-Af Amer) BUN/Creatinine Ratio (10-20) Glucose (70-99) mg/dl POC Glucose (70-99) mg/dl Lactate (0.4-2.0) mmol/L Calcium (8.5-10.1) mg/dl Magnesium (1.8-2.4) mg/dl Total Bilirubin (0.2-1) mg/dl AST (15-37) U/L ALT (12-78) U/L Alkaline Phosphatase (45-117) U/L Troponin I (0-0.045) ng/ml Total Protein (6.4-8.2) gm/dl Albumin (3.4-5.0) gm/dl Globulin (2.5-4.0) gm/dl Albumin/Globulin Ratio (0.9-2) Specimen Hemolysis Urine Color Dark Yellow Urine Appearance Turbid A (Clear) Urine pH 7.0 (4.5-7.5) Ur Specific [place] 1.027 (1.000-1.030) Urine Protein 1+ H (Negative) Urine Glucose (UA) Negative (Negative) Urine Ketones Trace H (Negative) Urine Blood 1+ H (Negative) Urine Nitrite Negative (Negative) Urine Bilirubin Negative (Negative) Urine Urobilinogen Negative (Negative) Ur Leukocyte Esterase 3+ H (Negative) Urine WBC (Auto) >30 H (0-5) /hpf Urine RBC (Auto) 5-10 H (0-4) /hpf U Hyaline Cast (Auto) 0 (0-5) /lpf U Epithel Cells (Auto) >30 H (0-5) /lpf Urine Bacteria (Auto) Negative (Negative) Urine Yeast Not Reportable Urine Sperm Not Reportable [place] 0.9 (0.6-1.2) mmol/L SARS-CoV-2, RNA, NAAT (NEGATIVE) SARS-CoV-2 Ag (Rapid) (Negative) Blood Type Recheck A Positive 10/05/20 10/05/20 10/05/20 Range/Units 13:07 13:07 13:07 WBC 9.00 (4.8-10.8) K/uL RBC 4.54 (4.2-5.4) M/uL Hgb 13.3 (12.0-16.0) g/dL Hct 41.2 (37-47) % MCV 90.7 (80-100) fL MCH 29.3 (25-34) pg MCHC 32.3 (32-36) g/dL RDW Std Deviation 47.9 H (36.4-46.3) fL RDW Coeff of Arnav 14.3 (11.5-14.5) % Plt Count 281 (130-400) K/uL MPV 9.7 (7.4-10.4) fL Immature Gran % (Auto) 0.4 % Neut % (Auto) 81.5 % Lymph % (Auto) 11.2 % Gilchrist % (Auto) 6.2 % Eos % (Auto) 0.6 % Baso % (Auto) 0.1 % Neut # (Auto) 7.33 H (1.4-6.5) K/uL Lymph # (Auto) 1.01 L (1.2-3.4) K/uL Gilchrist # (Auto) 0.56 (0.11-0.59) K/uL Eos # (Auto) 0.05 (0-0.5) K/uL Baso # (Auto) 0.01 (0-0.2) K/uL Immature Gran # (Auto) 0.04 H (0.00-0.02) K/uL PT 13.0 H (9.0-12.0) Seconds INR 1.2 H (0.9-1.1) APTT 23.8 (21.0-31.0) Seconds PTT Ratio 0.9 Sodium 139 (136-145) mmol/L Potassium 4.3 (3.5-5.1) mmol/L Chloride 108 H (98-107) mmol/L Carbon Dioxide 26 (21-32) mmol/L Anion Gap 5.0 (3-11) BUN 15 (7-18) mg/dl Creatinine 1.21 H (0.6-1.2) mg/dl Est Cr Clr Drug Dosing 34.7 ml/min Est GFR ( Amer) 50.0 Est GFR (Non-Af Amer) 43.1 BUN/Creatinine Ratio 12.6 (10-20) Glucose 115 H (70-99) mg/dl POC Glucose (70-99) mg/dl Lactate (0.4-2.0) mmol/L Calcium 9.3 (8.5-10.1) mg/dl Magnesium 2.2 (1.8-2.4) mg/dl Total Bilirubin 0.5 (0.2-1) mg/dl AST 24 (15-37) U/L ALT 17 (12-78) U/L Alkaline Phosphatase 83 (45-117) U/L Troponin I < 0.015 (0-0.045) ng/ml Total Protein 6.6 (6.4-8.2) gm/dl Albumin 3.0 L (3.4-5.0) gm/dl Globulin 3.6 (2.5-4.0) gm/dl Albumin/Globulin Ratio 0.8 L (0.9-2) Specimen Hemolysis Urine Color Urine Appearance (Clear) Urine pH (4.5-7.5) Ur Specific [place] (1.000-1.030) Urine Protein (Negative) Urine Glucose (UA) (Negative) Urine Ketones (Negative) Urine Blood (Negative) Urine Nitrite (Negative) Urine Bilirubin (Negative) Urine Urobilinogen (Negative) Ur Leukocyte Esterase (Negative) Urine WBC (Auto) (0-5) /hpf Urine RBC (Auto) (0-4) /hpf U Hyaline Cast (Auto) (0-5) /lpf U Epithel Cells (Auto) (0-5) /lpf Urine Bacteria (Auto) (Negative) Urine Yeast Urine Sperm [place] (0.6-1.2) mmol/L SARS-CoV-2, RNA, NAAT (NEGATIVE) SARS-CoV-2 Ag (Rapid) (Negative) Blood Type Recheck 10/05/20 Range/Units 13:01 WBC (4.8-10.8) K/uL RBC (4.2-5.4) M/uL Hgb (12.0-16.0) g/dL Hct (37-47) % MCV (80-100) fL MCH (25-34) pg MCHC (32-36) g/dL RDW Std Deviation (36.4-46.3) fL RDW Coeff of Arnav (11.5-14.5) % Plt Count (130-400) K/uL MPV (7.4-10.4) fL Immature Gran % (Auto) % Neut % (Auto) % Lymph % (Auto) % Gilchrist % (Auto) % Eos % (Auto) % Baso % (Auto) % Neut # (Auto) (1.4-6.5) K/uL Lymph # (Auto) (1.2-3.4) K/uL Gilchrist # (Auto) (0.11-0.59) K/uL Eos # (Auto) (0-0.5) K/uL Baso # (Auto) (0-0.2) K/uL Immature Gran # (Auto) (0.00-0.02) K/uL PT (9.0-12.0) Seconds INR (0.9-1.1) APTT (21.0-31.0) Seconds PTT Ratio Sodium (136-145) mmol/L Potassium (3.5-5.1) mmol/L Chloride (98-107) mmol/L Carbon Dioxide (21-32) mmol/L Anion Gap (3-11) BUN (7-18) mg/dl Creatinine (0.6-1.2) mg/dl Est Cr Clr Drug Dosing ml/min Est GFR ( Amer) Est GFR (Non-Af Amer) BUN/Creatinine Ratio (10-20) Glucose (70-99) mg/dl POC Glucose 125 H (70-99) mg/dl Lactate (0.4-2.0) mmol/L Calcium (8.5-10.1) mg/dl Magnesium (1.8-2.4) mg/dl Total Bilirubin (0.2-1) mg/dl AST (15-37) U/L ALT (12-78) U/L Alkaline Phosphatase (45-117) U/L Troponin I (0-0.045) ng/ml Total Protein (6.4-8.2) gm/dl Albumin (3.4-5.0) gm/dl Globulin (2.5-4.0) gm/dl Albumin/Globulin Ratio (0.9-2) Specimen Hemolysis Urine Color Urine Appearance (Clear) Urine pH (4.5-7.5) Ur Specific [place] (1.000-1.030) Urine Protein (Negative) Urine Glucose (UA) (Negative) Urine Ketones (Negative) Urine Blood (Negative) Urine Nitrite (Negative) Urine Bilirubin (Negative) Urine Urobilinogen (Negative) Ur Leukocyte Esterase (Negative) Urine WBC (Auto) (0-5) /hpf Urine RBC (Auto) (0-4) /hpf U Hyaline Cast (Auto) (0-5) /lpf U Epithel Cells (Auto) (0-5) /lpf Urine Bacteria (Auto) (Negative) Urine Yeast Urine Sperm [place] (0.6-1.2) mmol/L SARS-CoV-2, RNA, NAAT (NEGATIVE) SARS-CoV-2 Ag (Rapid) (Negative) Blood Type Recheck Diagnostic Findings CTA head/neck: IMPRESSION: 1. Significant motion artifact within the brain. No definite high-grade stenosis or occlusion within the [place]. 2. No significant stenosis, occlusion, or dissection identified within the carotid or left vertebral arteries. Mild focal narrowing at the takeoff of the right vertebral artery. 3. A 4 cm left thyroid nodule. Chest [id number] with mild central pulmonary vascular congestion without overt edema, low lung volumes Head CT noncontrast: IMPRESSION: 1. Suboptimal examination with significant motion degradation. 2. No acute intracranial findings given the technical limitations of the study 3. Metallic foreign body within the left orbit Code Status & VTE Plan Code Status Full code VTE Prophylaxis Plan VTE Prophylaxis will be ordered: Yes PG Care Time/CCT Total # of Minutes Spent Total Time Spent with Patient: Total time spent is greater than 50% in coordination of care (as documented) at patient's floor/unit and/or counseling patient: Coding Level of Care Code 50756 Initial Inpt Care Lvl 3 Diagnoses Stroke-like symptoms R29.90 Acute metabolic encephalopathy G93.41 Urinary tract infection N39.0 Hematuria presence: without hematuria Urinary tract infection type: site unspecified Atrial fibrillation I48.91 COVID-19 virus infection U07.1 Recurrent UTI N39.0 HTN (hypertension), benign I10 Hyperlipidemia E78.5 Osteopenia M85.80 Bipolar disorder F31.9 DVT prophylaxis Z29.9 (1) Urinary tract infection Hematuria presence: without hematuria Urinary tract infection type: site unspecified Qualified Code(s): N39.0 - Urinary tract infection, site not specified
[2020-10-05] MEDS ORDERED: POLYETHYLENE (MIRALAX) 17 GM PACK PO PRN (19:16)
[2020-10-05] MEDS ORDERED: ACETAMINOPHEN 325 MG TAB PO PRN (19:16)
[2020-10-05] MEDS ORDERED: bisacodyL 10 MG SUPP PR PRN (19:16)
[2020-10-05] MEDS ORDERED: ONDANSETRON INJ 2 MG/ML 2 ML VIAL IV PRN (19:16)
[2020-10-05] MEDS ORDERED: diazePAM 2 MG TABLET PO PRN (19:16)
[2020-10-05] MEDS ORDERED: MEROPENEM CONSULT ACITVE PRN (19:16)
[2020-10-05] MEDS ORDERED: PHARMACIST DISCHARGE MED REC CONSULT PRN (19:16)
[2020-10-05] MEDS ORDERED: MAGNESIUM HYDROXIDE SUSP 30 ML UDC PO PRN (19:37)
[2020-10-05] MEDS: CLOPIDOGREL BISULFATE 75 MG TAB PO SCH (22:34)
[2020-10-05] MEDS: LITHIUM CARBONATE 300 MG TAB PO SCH (22:35)
[2020-10-05] MEDS: ASCORBIC ACID 500 MG TAB PO SCH (22:35)
[2020-10-05] MEDS: ATORVASTATIN 10 MG TAB PO SCH (22:35)
[2020-10-05] MEDS: DOCUSATE SODIUM 100 MG CAP PO SCH (22:35)
[2020-10-05] MEDS: FAMOTIDINE 20 MG in SYRINGE 3 ML IV SCH (22:36)
[2020-10-05] MEDS: MEROPENEM 500 MG in SYRINGE 0 ML IV SCH (22:36)
[2020-10-06] MEDS: METOPROLOL TARTRATE 1 MG/ML VIAL IV SCH ×2 (00:59→05:58)
[2020-10-06] MEDS: MEROPENEM 500 MG in SYRINGE 0 ML IV SCH ×2 (05:58→14:49)
--- NOTE | 2020-10-06 06:49 | Electrocardiogram Report ---
Test Reason : Blood Pressure : / mmHG Vent. Rate : 123 BPM Atrial Rate : 123 BPM P-R Int : 000 ms QRS Dur : 076 ms QT Int : 286 ms P-R-T Axes : 000 -10 161 degrees QTc Int : 409 ms Atrial fibrillation with rapid ventricular response Possible Inferior infarct Abnormal ECG When compared with ECG of 30-SEP-2020 14:26, Atrial fibrillation has replaced Sinus rhythm Vent. rate has increased BY 57 BPM Inverted T waves have replaced nonspecific T wave abnormality in Anterior leads Confirmed by Stephan Rader ([id number]) on 10/06/2020 6:48:27 AM Referred By: REFERRED SELF Confirmed By:Stephan Rader
[2020-10-06 07:01] LABS: Eosinophils # (auto) 0.05 K/uL (0-0.5); Eosinophils % (auto) 0.6 %; Hematocrit (blood only) 40.6 % (37-47); Hemoglobin 12.8 g/dL (12.0-16.0); Immature Granulocytes # (auto) 0.02 K/uL (0.00-0.02); Immature Granulocytes % (auto) 0.2 %; Lymphocytes # (auto) 0.73 K/uL (1.2-3.4); Lymphocytes % (auto) 8.8 %; Mean Corpuscular Hemoglobin 28.7 pg (25-34); Mean Corpuscular Hgb Conc 31.5 g/dL (32-36); Mean Platelet Volume 9.8 fL (7.4-10.4); Monocytes # (auto) 0.73 K/uL (0.11-0.59); Monocytes % (auto) 8.8 %; Neutrophils % (auto) 81.6 %; Platelet Count 268 K/uL (130-400); RDW Coefficient of Variation 14.5 % (11.5-14.5); RDW Standard Deviation 48.8 fL (36.4-46.3); Red Blood Count 4.46 M/uL (4.2-5.4); White Blood Count 8.33 K/uL (4.8-10.8)
[2020-10-06 07:23] LABS: Estimated Average Glucose 97 mg/dl
--- NOTE | 2020-10-06 07:33 | Magnetic Resonance Report ---
MRI OF THE BRAIN WITHOUT CONTRAST CLINICAL HISTORY: Altered mental status. Evaluate for cerebrovascular accident. COMPARISON STUDY: Head CT and CTA of the head October 05, 2020. TECHNIQUE: Utilizing a 1.5 Irene magnet and dedicated coil, multiplanar, multiecho imaging of the bra in was performed without IV contrast. FINDINGS: This exam is mildly compromised by motion artifact. However, there is no restricted diffusi on to suggest acute infarct. No acute intracranial hemorrhage, midline shift or mass effect is presen t. Mild ventricular dilatation is likely due to atrophy. Basal cisterns are patent. There are no extr a-axial collections. Moderate white matter T2 hyperintense foci suggest small vessel disease. No intr acranial masses identified on this unenhanced examination. Flow-voids for the major intracranial vess els are present. Postoperative findings of the left globe are noted. Calvarial signal is normal. IMPRESSION: 1. No acute intracranial findings. 2. Exam mildly compromised by motion artifact. 3. Mild ventricular dilatation likely due to atrophy. 4. Moderate small vessel disease. ACT 112: Negative or not required by law. Electronically signed by: Wily Rothman M.D. 10/06/2020 7:32 AM
[2020-10-06 07:35] LABS: BUN Creatinine Ratio 17.4 (10-20); Calcium 9.2 mg/dl (8.5-10.1); Creatinine Clr Calc Pharmacy 55.5 ml/min; Est GFR (African American) 90.6; Est GFR (Non-African American) 78.1; Potassium 3.8 mmol/L (3.5-5.1)
[2020-10-06] MEDS ORDERED: METOPROLOL TARTRATE 1 MG/ML VIAL IV SCH (08:45)
[2020-10-06] MEDS: FAMOTIDINE 20 MG in SYRINGE 3 ML IV SCH (08:58)
[2020-10-06] MEDS ORDERED: ENOXAPARIN INJ 40 MG/0.4 ML SYR SQ SCH (09:00)
[2020-10-06] MEDS: buPROPion XL 300 MG TABCR PO SCH (11:44)
[2020-10-06] MEDS: CHOLECALCIFEROL 1,000 UNITS 25 MCG TAB PO SCH (11:44)
[2020-10-06] MEDS: FAMOTIDINE 20 MG TAB PO SCH (11:44)
[2020-10-06] MEDS: PANTOprazole 40 MG TAB PO SCH (11:44)
[2020-10-06] MEDS: ASCORBIC ACID 500 MG TAB PO SCH ×2 (11:44→22:30)
[2020-10-06] MEDS: DOCUSATE SODIUM 100 MG CAP PO SCH ×2 (11:44→22:30)
[2020-10-06] MEDS: SERTRALINE HCL 100 MG TABLET PO SCH (11:44)
[2020-10-06] MEDS: CLOPIDOGREL BISULFATE 75 MG TAB PO SCH (11:48)
[2020-10-06] MEDS ORDERED: NITROFURANTOIN MONOHYDRATE 100 MG CAP PO SCH (12:00)
[2020-10-06] MEDS ORDERED: APIXABAN 5 MG TABLET PO SCH (12:00)
[2020-10-06] MEDS ORDERED: METOPROLOL TARTRATE 25 MG TAB PO ONE (12:00)
[2020-10-06] MEDS: POTASSIUM CHLORIDE / WTR 10 MEQ/100 ML PLCT IV SCH ×2 (12:25→13:25)
[2020-10-06] MEDS ORDERED: METOPROLOL TARTRATE 1 MG/ML VIAL IV PRN (12:48)
[2020-10-06] MEDS: ENOXAPARIN INJ 60 MG/0.6 ML SYR SQ SCH (13:39)
[2020-10-06] MEDS: SODIUM CHLORIDE 0.9% 1000ML 1,000 ML IV SCH (18:13)
--- NOTE | 2020-10-06 19:41 | Hospitalist Progress Note ---
Date of Service October 06, 2020 Assessment & Plan (1) Stroke-like symptoms: Presented with acute onset of right-sided weakness and right-sided facial droop while working with physical therapy at the rehab Right-sided weakness improved rapidly, right facial droop may be chronic as per daughter CT angiogram head and neck negative CT head negative Blood pressures were actually low when she arrived Telemetry stroke consult did not recommend TPA as she had been on Lovenox SQ and had rapid improvement of symptoms MRI brain negative for stroke With altered mental status which may be due to UTI/metabolic encephalopathy Discussed care with neurologist who did not see her today due to Covid precautions-he stated that she most likely had a TIA and recommended therapeutic anticoagulation for her atrial fibrillation and no need for antiplatelet -Discontinue Plavix -Start Lovenox full dose 1 mg/KG every 12 hours until reliably taking p.o. and then will start Eliquis which she has been on in the past Speech therapy consultation, PT/OT evaluations appreciated Neuro consult appreciated Neuro checks and daily NIH scale Lipid panel with total cholesterol 120, LDL 53, HDL 35-continue atorvastatin 10 mg once daily Hemoglobin A1c normal at 5.0% Permissive hypertension-hold all BP meds except giving Lopressor for rate control with atrial fibrillation as below -Continue normal saline but reduce to 100 mL/h (2) Acute metabolic encephalopathy: Secondary to UTI as stroke now ruled out Treating UTI Has a long history of encephalopathy as per daughter every time she has UTI Slightly improved today (3) Urinary tract infection: Abnormal urinalysis Has a history of ESBL E. coli UTI and recent Enterococcus UTI Continue with meropenem in case of ESBL E. coli and add nitrofurantoin for Enterococcus Follow cultures Needs follow-up with urology as an outpatient after discharge for recurrent UTIs Holding home prophylactic Cipro (4) Atrial fibrillation: With ongoing rapid atrial fibrillation on ECG and on telemetry No chest pain, troponin is negative Able to take p.o. at this point-restart home metoprolol 25 mg p.o. twice daily Daughter reports that she had atrial fibrillation and was on Eliquis for about 2 months last year but then was taken off of it as per cardiology as it was decided she had lone A. fib from the stress of the hospitalization for UTI at that time Stroke has been ruled out -Start therapeutic dosing of Lovenox and eventually transition Eliquis once reliably taking p.o. -Monitor on telemetry -Will defer echocardiogram until resolution of Covid-recommend either as an outpatient or later this admission (5) COVID-19 virus infection: Diagnosed on 09/25, has not really had many symptoms at all except for poor appetite as per daughter and some altered mental status at times which may have been from Covid versus UTI Precautions recommended until day 14 as per recommendations of infection pollution control technician-last day would be 10/09 Chest x-ray without pneumonia, she is not hypoxic (6) Recurrent UTI: As above Needs follow-up with urology as an outpatient (7) HTN (hypertension), benign: Holding home meds as above except metoprolol (8) Hyperlipidemia: Continue statin Lipid panel as above-we will discuss giving high intensity statin with neurology (9) Osteopenia: Noted With history of pelvic and hip fractures Continue vitamin D (10) Bipolar disorder: Continue home meds of sertraline, bupropion, lithium Check lithium level in the morning (11) DVT prophylaxis: Lovenox SQ, SCDs Disposition-continued stay on PCU telemetry Full code as per daughter Admission and Anticipated Discharge Date Admission Date: October 05, 2020 Subjective Pt remains lethargic but more alert today. Worked with speech therapy and was advanced to a pured diet however is still pocketing some food and not following commands well. She denied any pain. Telemetry with rapid atrial fibrillation with rates in the 1 teens to 120s. I discussed her case with cardiology and neurology-we will cancel cardiology consultation as she remains on Covid precautions and atrial fibrillation is being managed by myself. Review of Systems Review of Systems: Unobtainable due to cognitive status Physical Exam Constitutional: well developed, + ill appearing and + disheveled; no acute distress Eyes: PERRL, conjunctivae normal, anicteric sclerae ENMT: Ears: no hearing impairment Mouth: + oral mucosal abnormality (With some grayish-white exudate on the right side of tongue from food?) With right-sided facial droop Neck: trachea midline, no thyromegaly Respiratory: normal respiratory effort, lungs clear to auscultation Cardiovascular: Rate/Rhythm: + tachycardic and + irregularly irregular Heart Sounds: no murmur Extremities: no calf tenderness and no edema Chest (Breasts): Chest: normal inspection of chest Gastrointestinal (Abdomen): normal bowel sounds, soft, nontender, no hepatosplenomegaly Musculoskeletal: Extremities: extremities normal to inspection; no cyanosis and no clubbing Skin: no rashes, warm and dry Neurologic: moves all extremities, + focal motor deficit (4+/5 strength of the right upper extremity, otherwise 5/5 throughout), awake and + confused; + CN's not intact (Unable to cooperate for testing very well, but does have right-sided facial) Psychiatric: Orientation: alert (But intermittently drowsy) and oriented to person; + not oriented to place and + not oriented to time Eye Contact: + fair eye contact Affect: + flat affect Lymphatic: no lymphedema Results & Data Results & Data ([facility]) Vital Signs (Past 12 Hours) Vital Signs Temp Pulse Pulse Resp BP BP Pulse Ox 10/06/20 15:42 36.3 C L 103 H 119/83 91 10/06/20 11:06 36.5 C 114 H 20 122/77 93 10/06/20 08:56 122 H 112/77 10/06/20 08:00 108 H Laboratory Results 10/06/20 10/06/20 10/06/20 Range/Units 06:24 06:24 06:24 WBC 8.33 (4.8-10.8) K/uL RBC 4.46 (4.2-5.4) M/uL Hgb 12.8 (12.0-16.0) g/dL Hct 40.6 (37-47) % MCV 91.0 (80-100) fL MCH 28.7 (25-34) pg MCHC 31.5 L (32-36) g/dL RDW Std Deviation 48.8 H (36.4-46.3) fL RDW Coeff of [place]nav 14.5 (11.5-14.5) % Plt Count 268 (130-400) K/uL MPV 9.8 (7.4-10.4) fL Immature Gran % (Auto) 0.2 % Neut % (Auto) 81.6 % Lymph % (Auto) 8.8 % [place] % (Auto) 8.8 % Eos % (Auto) 0.6 % Baso % (Auto) 0.0 % Neut # (Auto) 6.80 H (1.4-6.5) K/uL Lymph # (Auto) 0.73 L (1.2-3.4) K/uL [place] # (Auto) 0.73 H (0.11-0.59) K/uL Eos # (Auto) 0.05 (0-0.5) K/uL Baso # (Auto) 0.00 (0-0.2) K/uL Immature Gran # (Auto) 0.02 (0.00-0.02) K/uL Sodium 144 (136-145) mmol/L Potassium 3.8 (3.5-5.1) mmol/L Chloride 114 H (98-107) mmol/L Carbon Dioxide 26 (21-32) mmol/L Anion Gap 5.0 (3-11) BUN 13 (7-18) mg/dl Creatinine 0.74 D (0.6-1.2) mg/dl Est Cr Clr Drug Dosing 55.5 ml/min Est GFR ( Amer) 90.6 Est GFR (Non-Af Amer) 78.1 BUN/Creatinine Ratio 17.4 (10-20) Glucose 92 (70-99) mg/dl Estimat Average Glucose 97 mg/dl Hemoglobin A1c 5.0 (4.5-5.6) % Calcium 9.2 (8.5-10.1) mg/dl Triglycerides 158 H (0-150) mg/dl Cholesterol 120 (0-200) mg/dl LDL Cholesterol, Calc 53 mg/dl VLDL Cholesterol, Calc 32 mg/dl HDL Cholesterol 35 mg/dl Cholesterol/HDL Ratio 3 PG Care Time/CCT Total # of Minutes Spent Total Time Spent with Patient: Total time spent is greater than 50% in coordination of care (as documented) at patient's floor/unit and/or counseling patient: Coding Level of Care Code 89522 Subseq Hosp Care Lvl 3 Diagnoses Stroke-like symptoms R29.90 Acute metabolic encephalopathy G93.41 Urinary tract infection N39.0 Hematuria presence: without hematuria Urinary tract infection type: site unspecified Atrial fibrillation I48.91 COVID-19 virus infection U07.1 Recurrent UTI N39.0 HTN (hypertension), benign I10 Hyperlipidemia E78.5 Osteopenia M85.80 Bipolar disorder F31.9 DVT prophylaxis Z29.9 (1) Urinary tract infection Hematuria presence: without hematuria Urinary tract infection type: site unspecified Qualified Code(s): N39.0 - Urinary tract infection, site not specified
[2020-10-06] MEDS: AMPICILLIN/SULBACTAM SOD 3,000 MG in 0.9 % SODIUM CHLORIDE 100 ML IV SCH (22:29)
[2020-10-06] MEDS: METOPROLOL TARTRATE 25 MG TAB PO SCH (22:30)
[2020-10-06] MEDS: ATORVASTATIN 10 MG TAB PO SCH (22:30)
[2020-10-06] MEDS: LITHIUM CARBONATE 300 MG TAB PO SCH (22:31)
[2020-10-07] MEDS: SODIUM CHLORIDE 0.9% 1000ML 1,000 ML IV SCH ×3 (01:06→16:53)
[2020-10-07] MEDS: ENOXAPARIN INJ 60 MG/0.6 ML SYR SQ SCH ×2 (01:06→12:39)
[2020-10-07] MEDS: AMPICILLIN/SULBACTAM SOD 3,000 MG in 0.9 % SODIUM CHLORIDE 100 ML IV SCH ×4 (05:01→21:43)
[2020-10-07 06:23] LABS: Eosinophils # (auto) 0.09 K/uL (0-0.5); Eosinophils % (auto) 1.6 %; Hematocrit (blood only) 36.1 % (37-47); Hemoglobin 11.2 g/dL (12.0-16.0); Immature Granulocytes # (auto) 0.01 K/uL (0.00-0.02); Immature Granulocytes % (auto) 0.2 %; Lymphocytes # (auto) 0.74 K/uL (1.2-3.4); Lymphocytes % (auto) 12.8 %; Mean Corpuscular Hemoglobin 28.6 pg (25-34); Mean Corpuscular Volume 92.3 fL (80-100); Mean Platelet Volume 9.6 fL (7.4-10.4); Monocytes # (auto) 0.61 K/uL (0.11-0.59); Monocytes % (auto) 10.5 %; Neutrophils # (auto) 4.34 K/uL (1.4-6.5); Neutrophils % (auto) 74.9 %; Platelet Count 230 K/uL (130-400); RDW Coefficient of Variation 14.6 % (11.5-14.5); RDW Standard Deviation 49.6 fL (36.4-46.3); Red Blood Count 3.91 M/uL (4.2-5.4); White Blood Count 5.79 K/uL (4.8-10.8)
[2020-10-07 06:56] LABS: BUN Creatinine Ratio 18.3 (10-20); Calcium 8.5 mg/dl (8.5-10.1); Creatinine Clr Calc Pharmacy 74.3 ml/min; Est GFR (African American) 104.2; Est GFR (Non-African American) 89.9; Potassium 3.6 mmol/L (3.5-5.1)
[2020-10-07] MEDS: POTASSIUM CHLORIDE / WTR 10 MEQ/100 ML PLCT IV SCH ×4 (08:33→12:38)
[2020-10-07] MEDS: DOCUSATE SODIUM 100 MG CAP PO SCH ×2 (08:34→21:41)
[2020-10-07] MEDS: ASCORBIC ACID 500 MG TAB PO SCH ×2 (08:35→21:41)
[2020-10-07] MEDS: buPROPion XL 300 MG TABCR PO SCH (08:35)
[2020-10-07] MEDS: FAMOTIDINE 20 MG TAB PO SCH (08:35)
[2020-10-07] MEDS: CHOLECALCIFEROL 1,000 UNITS 25 MCG TAB PO SCH (08:36)
[2020-10-07] MEDS: METOPROLOL TARTRATE 25 MG TAB PO SCH ×2 (08:36→21:41)
[2020-10-07] MEDS: PANTOprazole 40 MG TAB PO SCH (08:37)
[2020-10-07] MEDS: SERTRALINE HCL 100 MG TABLET PO SCH (08:37)
--- NOTE | 2020-10-07 08:49 | Neurology Consultation ---
Date of Consultation October 07, 2020 Assessment & Plan (1) TIA (transient ischemic attack): Probable TIA localizing to the left cerebral hemisphere occurring in the context of atrial fibrillation. Would recommend restarting Eliquis when patient is able to reliably take oral medication. Case discussed with Dr. Renetta Silveira. I did not directly examine this patient as she is in the COVID-19 unit. My assessment of her case is based on chart review and discussion with Dr. Renetta Silveira, her hospitalist physician. History of Present Illness Reason for Consultation: Concern for stroke Requesting Physician: Renetta Silveira MD Attending Physician: Renetta Silveira MD History of Present Illness The patient is a 75-year old female who was transferred to the emergency department on October [address] [facility] for further evaluation and management of acute onset alteration in mental status, diminished responsiveness, with associated right facial droop and weakness of the right arm. She was noted to have a right facial droop and alteration in speech with dysarthria during her assessment in the emergency department. Her history is notable for atrial fibrillation, spinal fusion this past August, dementia, recent COVID-19 infection, recurrent UTI, acute kidney failure, and a possible dental infection. Initial imaging including a CT of the head and CT angiogram of the head and neck were unremarkable. She did have a telestroke consultation with a specialist at [facility]. TPA was not recommended as her symptoms were improving and it was suggested that her presentation may have been consistent with a toxic metabolic syndrome rather than acute stroke. She was admitted to the COVID unit given her current positive COVID-19 status. A follow-up brain MRI was negative for acute findings. There is generalized atrophy with associated ventricular dilatation and chronic moderate small vessel ischemic disease. These findings were observed by the interpreting radiologist. I reviewed the images and agree. Electrocardiogram completed September 30, 2020 revealed a normal sinus rhythm. An ECG completed October 05, 2020 revealed atrial fibrillation with rapid ventricular response. This patient's right-sided weakness has improved and has been stable in the context of her current hospitalization although she does have chronic right facial weakness which has been noted by her daughter. She is currently on Lovenox. I had discussed her case yesterday with Dr. Silveira and suggested starting an oral anticoagulant as her history seems most consistent with TIA localizing to the left cerebral hemisphere, and occurring in the context of atrial fibrillation. She had been on Eliquis in the past and there are plans to restart this medication when she is able to reliably take oral medication. The above information was gathered from chart review and discussion with Dr. Silveira. Allergies Allergy/AdvReac Type Severity Reaction Status Date / Time aspirin Allergy Unknown Unverified 10/05/20 15:59 Home Medications Medication Instructions Recorded Confirmed Type acetaminophen [Tylenol] 650 mg PO Q4H PRN 10/05/20 10/05/20 History amlodipine 10 mg PO QAM 10/05/20 10/05/20 History amoxicillin 250 mg PO TID 10/05/20 10/05/20 History ascorbic acid (vitamin C) 500 mg PO BID 10/05/20 10/05/20 History atorvastatin 10 mg PO PM 10/05/20 10/05/20 History bisacodyl 10 mg LA DAILY PRN 10/05/20 10/05/20 History bupropion HCl 300 mg PO QAM 10/05/20 10/05/20 History cholecalciferol (vitamin D3) 50 mcg PO DAILY 10/05/20 10/05/20 History ciprofloxacin HCl [Cipro] 250 mg PO QAM 10/05/20 10/05/20 History diazepam 2 mg PO QID PRN 10/05/20 10/05/20 History docusate sodium 100 mg PO BID 10/05/20 10/05/20 History enoxaparin 40 mg SUBCUT QPM 10/05/20 10/05/20 History famotidine 20 mg PO QAM 10/05/20 10/05/20 History guaifenesin [Mucinex] 600 mg PO BID 10/05/20 10/05/20 History lisinopril 20 mg PO QAM 10/05/20 10/05/20 History lithium carbonate 300 mg PO HS 10/05/20 10/05/20 History magnesium hydroxide [Milk Of 30 ml PO DAILY PRN 10/05/20 10/05/20 History Magnesia Concentrated] melatonin 3 mg PO HS 10/05/20 10/05/20 History metoprolol tartrate 25 mg PO BID 10/05/20 10/05/20 History nitrofurantoin macrocrystal 100 mg PO HS 10/05/20 10/05/20 History ondansetron HCl 4 mg PO Q4H PRN 10/05/20 10/05/20 History pantoprazole 40 mg PO QAM 10/05/20 10/05/20 History polyethylene glycol 3350 17 g PO DAILY 10/05/20 10/05/20 History sennosides-docusate sodium 1 tab-cap PO .@LUNCH 10/05/20 10/05/20 History [Senokot-S] sertraline 100 mg PO QAM 10/05/20 10/05/20 History zinc sulfate 220 mg PO QAM 10/05/20 10/05/20 History Patient History Medical History Anemia Atrial fibrillation Bipolar disorder COVID-19 virus infection HTN (hypertension), benign Hyperlipidemia Malaise Mood disorder Osteopenia Recurrent UTI Surgical History H/O lumbosacral spine surgery History of detached retina repair History of hysterectomy History of repair of hip fracture Family History Other Family history non-contributory Social History Smoking Status: Never smoker Hx Alcohol Use: No Hx Substance Use: No Preferred Language: Uzbek Communication Ability Comment: patient unable to follow comands and non-verbal at this time 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0, triglycerides 158, cholesterol 120, LDL 53, VLDL 32, HDL 35, SARS-CoV-2 RNA and rapid antigen testing positive. Coding Level of Care Code None Diagnoses TIA (transient ischemic attack) G45.9
--- NOTE | 2020-10-07 21:15 | Hospitalist Progress Note ---
Date of Service October 07, 2020 Assessment & Plan (1) TIA (transient ischemic attack): Presented with acute onset of right-sided weakness and right-sided facial droop while working with physical therapy at the rehab Right-sided weakness improved rapidly and is now completely resolved, right facial droop may be chronic as per daughter, and is also related to dental infection as below CT angiogram head and neck negative CT head negative Blood pressures were actually low when she arrived Telemetry stroke consult did not recommend TPA as she had been on Lovenox SQ and had rapid improvement of symptoms MRI brain negative for stroke With altered mental status which may be due to UTI//dental infection/metabolic encephalopathy which is now improving Discussed care with neurologist who did not see her today due to Covid precautions-he stated that she most likely had a TIA and recommended therapeutic anticoagulation for her atrial fibrillation and no need for antiplatelet -Initially anticoagulated with Lovenox full dose 1 mg/KG every 12 hours however now she is reliably taking p.o.-we will start Eliquis at 5 mg p.o. twice daily in the morning Speech therapy consultation, PT/OT evaluations appreciated Neuro consult appreciated Neuro checks and daily NIH scale Lipid panel with total cholesterol 120, LDL 53, HDL 35-continue atorvastatin but increase to high intensity dose of 40 mg once daily Hemoglobin A1c normal at 5.0% -Previously held home antihypertensives for permissive hypertension, but now stroke ruled out-will control blood pressure by adding meds back on DC IV fluids (2) Dental infection: Noted to have right-sided cheek swelling on admission thought to be contributing to worsening right facial droop Swelling is now down and since her encephalopathy is improved and she is cooperative-she has a symmetrical smile on examination I was able to look inside her mouth adequately on 10/07 and she has a missing right mandibular molar with pus coming out of the empty socket Very poor dentition and daughter reports patient has not seen a dentist in 20 years -Continue Unasyn After off Covid precautions, recommend follow-up either inpatient or outpatient with [facility], Dr. Nehemiah Dawson No evidence of abscess or tenderness to palpation in the submandibular region (3) Acute metabolic encephalopathy: Secondary to UTI and possibly dental infection as stroke now ruled out Treating UTI and dental infection with Unasyn Has a long history of encephalopathy as per daughter every time she has UTI Significantly improved today, but does not seem to be quite back to her baseline as per description from daughter At baseline, daughter reports she is completely mentally clear "just like you and I." (4) Urinary tract infection: Abnormal urinalysis Has a history of ESBL E. coli UTI and recent Enterococcus UTI Cathed specimen urine culture here growing 10,000 CFU Streptococcus species which is most likely going to be another Enterococcus infection-of note, she was on 1 day of amoxicillin prior to admission Has Khalil catheter that was placed in the ER when she was encephalopathic-can likely remove this on Saturday morning now that she is able to cooperate and will be able to get out of bed to bedside commode Continue Unasyn and follow-up final urine culture Needs follow-up with urology as an outpatient after discharge for recurrent UTIs Holding home prophylactic Cipro (5) Atrial fibrillation: With ongoing rapid atrial fibrillation on ECG and on telemetry for the rst 2 days of admission Converted to normal sinus rhythm on the evening of 10/06 No chest pain, troponin is negative -Continue metoprolol 25 mg p.o. twice daily for rate control Daughter reports that she had atrial fibrillation and was on Eliquis for about 2 months last year but then was taken off of it as per cardiology as it was decided she had lone A. fib from the stress of a previous hospitalization for UTI at that time Stroke has been ruled out, but with TIA as above -Started therapeutic dosing of Lovenox and now will transition to Eliquis as she is taking p.o. -Continue to monitor on telemetry -Will defer echocardiogram until resolution of Covid-recommend either as an outpatient or later this admission (6) COVID-19 virus infection: Diagnosed on 09/25, has not really had many symptoms at all except for poor appetite as per daughter and some altered mental status at times which may have been from Covid versus UTI Precautions recommended until day 14 as per recommendations of infection classification control clerk-last day would be 10/09 Chest x-ray without pneumonia, she is not hypoxic (7) Recurrent UTI: As above, has had 10 UTIs in the last year all with ensuing metabolic encephalopathy as per daughter Needs follow-up with urology as an outpatient (8) HTN (hypertension), benign: Blood pressure is now elevated Restarting home amlodipine, lisinopril Continue home metoprolol (9) Hyperlipidemia: Continue statin Lipid panel as above-we will increase intensity of atorvastatin to 40 mg given the TIA (10) Osteopenia: Noted With history of pelvic and hip fractures Continue vitamin D (11) Bipolar disorder: Continue home meds of sertraline, bupropion, lithium Check lithium level in the morning (12) DVT prophylaxis: Destin Guerra Disposition-continued stay on PCU telemetry, but improving, will need to go back to acute rehab in the next 2 days or so PT/OT evaluations appreciated-recommend rehab Full code as per daughter Discussed her care with her daughter on the phone daily on 10/05, 10/06, and 10/07. She would appreciate a daily update if the attending has time Admission and Anticipated Discharge Date Admission Date: October 05, 2020 Subjective Patient is much improved today, much more alert and interactive. She is following all commands. She denies any chest pain or shortness of breath, denies abdominal pains. She denies tooth pain or pain in the right side of the face. On telemetry she converted to normal sinus rhythm yesterday evening and has been with a normal sinus rhythm in the 70s all day. She is drinking and eating today. Review of Systems Review of Systems: All systems reviewed & are unremarkable except as noted in HPI & below Physical Exam Constitutional: well developed; no acute distress Eyes: PERRL, conjunctivae normal, anicteric sclerae ENMT: Ears: + hearing impairment; no external ear abnormality Nose: no external nose abnormality Mouth: + oral mucosal abnormality (With white ulcer right buccal mucosa) With purulent drainage coming from missing lower right molar space Neck: trachea midline, no thyromegaly normal visual inspection No tenderness to palpation of mandible and submandibular regions, no masses or fluctuance, no erythema Respiratory: normal respiratory effort, lungs clear to auscultation Cardiovascular: RRR, no murmur, no edema Extremities: no calf tenderness and no edema Chest (Breasts): Chest: normal inspection of chest Gastrointestinal (Abdomen): normal bowel sounds, soft, nontender, no hepatosplenomegaly Musculoskeletal: Extremities: extremities normal to inspection; no cyanosis and no clubbing Skin: no rashes, warm and dry Neurologic: CN's II-XI intact bilaterally (No right facial droop, but with mild right cheek swelling), moves all extremities and awake; no focal motor deficits (Full strength throughout bilateral upper and lower extremities much improve) and not confused (Much more mentally clear today) Psychiatric: Orientation: alert, oriented to person and cooperative Eye Contact: + fair eye contact Affect: euthymic affect Lymphatic: no lymphedema Results & Data Results & Data ([facility]) Vital Signs (Past 12 Hours) Vital Signs Temp Pulse Resp BP Pulse Ox 10/07/20 15:35 36.4 C L 68 18 165/69 H 95 10/07/20 11:22 36.6 C 60 18 164/76 H 92 Laboratory Results 10/07/20 10/07/20 Range/Units 05:43 05:43 WBC 5.79 (4.8-10.8) K/uL RBC 3.91 L (4.2-5.4) M/uL Hgb 11.2 L (12.0-16.0) g/dL Hct 36.1 L (37-47) % MCV 92.3 (80-100) fL MCH 28.6 (25-34) pg MCHC 31.0 L (32-36) g/dL RDW Std Deviation 49.6 H (36.4-46.3) fL RDW Coeff of Anrav 14.6 H (11.5-14.5) % Plt Count 230 (130-400) K/uL MPV 9.6 (7.4-10.4) fL Immature Gran % (Auto) 0.2 % Neut % (Auto) 74.9 % Lymph % (Auto) 12.8 % [place] % (Auto) 10.5 % Eos % (Auto) 1.6 % Baso % (Auto) 0.0 % Neut # (Auto) 4.34 (1.4-6.5) K/uL Lymph # (Auto) 0.74 L (1.2-3.4) K/uL [place] # (Auto) 0.61 H (0.11-0.59) K/uL Eos # (Auto) 0.09 (0-0.5) K/uL Baso # (Auto) 0.00 (0-0.2) K/uL Immature Gran # (Auto) 0.01 (0.00-0.02) K/uL Sodium 145 (136-145) mmol/L Potassium 3.6 (3.5-5.1) mmol/L Chloride 114 H (98-107) mmol/L Carbon Dioxide 25 (21-32) mmol/L Anion Gap 6.0 (3-11) BUN 10 (7-18) mg/dl Creatinine 0.56 L (0.6-1.2) mg/dl Est Cr Clr Drug Dosing 74.3 ml/min Est GFR ( Amer) 104.2 Est GFR (Non-Af Amer) 89.9 BUN/Creatinine Ratio 18.3 (10-20) Glucose 66 L (70-99) mg/dl Calcium 8.5 (8.5-10.1) mg/dl Magnesium 2.0 (1.8-2.4) mg/dl PG Care Time/CCT Total # of Minutes Spent Total Time Spent with Patient: Total time spent is greater than 50% in coordination of care (as documented) at patient's floor/unit and/or counseling patient: Coding Level of Care Code 21169 Subseq Hosp Care Lvl 3 Diagnoses TIA (transient ischemic attack) G45.9 Dental infection K04.7 Acute metabolic encephalopathy G93.41 Urinary tract infection N39.0 Hematuria presence: without hematuria Urinary tract infection type: site unspecified Atrial fibrillation I48.91 COVID-19 virus infection U07.1 Recurrent UTI N39.0 HTN (hypertension), benign I10 Hyperlipidemia E78.5 Osteopenia M85.80 Bipolar disorder F31.9 DVT prophylaxis Z29.9 (1) Urinary tract infection Hematuria presence: without hematuria Urinary tract infection type: site unsp ecified Qualified Code(s): N39.0 - Urinary tract infection, site not specified
[2020-10-07] MEDS: LITHIUM CARBONATE 300 MG TAB PO SCH (21:41)
[2020-10-07] MEDS: ATORVASTATIN 10 MG TAB PO SCH (21:58)
[2020-10-07] MEDS: ATORVASTATIN 40 MG TAB PO SCH (23:23)
[2020-10-08] MEDS: AMPICILLIN/SULBACTAM SOD 3,000 MG in 0.9 % SODIUM CHLORIDE 100 ML IV SCH ×4 (05:16→22:36)
[2020-10-08] MEDS ORDERED: amLODIPine BESYLATE 5 MG TAB PO ONE (05:40)
[2020-10-08] MEDS: APIXABAN 5 MG TABLET PO SCH ×2 (08:46→20:48)
[2020-10-08] MEDS: METOPROLOL TARTRATE 25 MG TAB PO SCH ×2 (08:47→20:49)
[2020-10-08] MEDS: DOCUSATE SODIUM 100 MG CAP PO SCH ×2 (08:47→20:47)
[2020-10-08] MEDS: POLYETHYLENE (MIRALAX) 17 GM PACK PO SCH (08:48)
[2020-10-08] MEDS: FAMOTIDINE 20 MG TAB PO SCH (08:48)
[2020-10-08] MEDS: ASCORBIC ACID 500 MG TAB PO SCH ×2 (08:49→20:50)
[2020-10-08] MEDS: PANTOprazole 40 MG TAB PO SCH (08:49)
[2020-10-08] MEDS: CHOLECALCIFEROL 1,000 UNITS 25 MCG TAB PO SCH (08:50)
[2020-10-08] MEDS: buPROPion XL 300 MG TABCR PO SCH (08:50)
[2020-10-08] MEDS: lisinopril 20 MG TAB PO SCH (08:52)
[2020-10-08] MEDS: SERTRALINE HCL 100 MG TABLET PO SCH (08:52)
[2020-10-08] MEDS ORDERED: amLODIPine BESYLATE 5 MG TAB PO SCH (09:00)
[2020-10-08 10:11] LABS: Basophils # (auto) 0.01 K/uL (0-0.2); Basophils % (auto) 0.2 %; Eosinophils # (auto) 0.08 K/uL (0-0.5); Eosinophils % (auto) 1.3 %; Hematocrit (blood only) 35.1 % (37-47); Immature Granulocytes # (auto) 0.03 K/uL (0.00-0.02); Immature Granulocytes % (auto) 0.5 %; Lymphocytes # (auto) 0.55 K/uL (1.2-3.4); Mean Corpuscular Hemoglobin 28.5 pg (25-34); Mean Corpuscular Hgb Conc 31.3 g/dL (32-36); Mean Corpuscular Volume 90.9 fL (80-100); Monocytes % (auto) 4.9 %; Neutrophils # (auto) 5.14 K/uL (1.4-6.5); Neutrophils % (auto) 84.1 %; Platelet Count 210 K/uL (130-400); RDW Coefficient of Variation 14.4 % (11.5-14.5); RDW Standard Deviation 48.3 fL (36.4-46.3); Red Blood Count 3.86 M/uL (4.2-5.4); White Blood Count 6.11 K/uL (4.8-10.8)
[2020-10-08] MEDS: DOCUSATE SODIUM/SENNA 50/8.6MG TAB PO SCH (10:25)
[2020-10-08 10:35] LABS: BUN Creatinine Ratio 10.7 (10-20); Calcium 8.7 mg/dl (8.5-10.1); Creatinine Clr Calc Pharmacy 78.6 ml/min; Est GFR (African American) 106.1; Est GFR (Non-African American) 91.6; Potassium 3.5 mmol/L (3.5-5.1)
--- NOTE | 2020-10-08 11:49 | Hospitalist Progress Note ---
Date of Service October 08, 2020 Assessment & Plan (1) TIA (transient ischemic attack): Presented with acute onset of right-sided weakness and right-sided facial droop while working with physical therapy at the rehab Right-sided weakness improved rapidly and is now completely resolved, right facial droop may be chronic as per daughter, and is also related to dental infection as below CT angiogram head and neck negative CT head negative Blood pressures were actually low when she arrived Telemetry stroke consult did not recommend TPA as she had been on Lovenox SQ and had rapid improvement of symptoms MRI brain negative for stroke With altered mental status which may be due to UTI//dental infection/metabolic encephalopathy which is now improving Discussed care with neurologist who did not see her due to Covid precautions- she most likely had a TIA and recommended therapeutic anticoagulation for her atrial fibrillation and no need for antiplatelet -Initially anticoagulated with Lovenox full dose 1 mg/KG every 12 hours however now she is reliably taking p.o.- transitioned to Eliquis at 5 mg p.o. BID Speech therapy consultation, PT/OT evaluations appreciated Neuro consult appreciated Lipid panel with total cholesterol 120, LDL 53, HDL 35-continue atorvastatin but increase to high intensity dose of 40 mg once daily Hemoglobin A1c normal at 5.0% -Previously held home antihypertensives for permissive hypertension, but now stroke ruled out-will control blood pressure by adding meds back on work on discharge to [facility] (2) Dental infection: Noted to have right-sided cheek swelling on admission thought to be contributing to worsening right facial droop Swelling is now down and since her encephalopathy is improved and she is cooperative-she has a symmetrical smile on examination Dr. 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 Nehemiah Dawson No evidence of abscess or tenderness to palpation in the submandibular region (3) Acute metabolic encephalopathy: Secondary to UTI and possibly dental infection as stroke now ruled out Treating UTI and dental infection with Unasyn Has a long history of encephalopathy as per daughter every time she has UTI could be COVID delirium At baseline, daughter reports she is completely mentally clear "just like you and I." (4) Urinary tract infection: Abnormal urinalysis Has a history of ESBL E. coli UTI and recent Enterococcus UTI Cathed specimen urine culture here growing 10,000 CFU Streptococcus species which is most likely going to be another Enterococcus infection-of note Has Khalil catheter that was placed in the ER when she was encephalopathic- remove today Continue Unasyn and follow-up final urine culture Needs follow-up with urology as an outpatient after discharge for recurrent UTIs Holding home prophylactic Cipro (5) Atrial fibrillation: With ongoing rapid atrial fibrillation on ECG and on telemetry for the first 2 days of admission Converted to normal sinus rhythm on the evening of 10/06 No chest pain, troponin is negative -Continue metoprolol 25 mg p.o. twice daily for rate control Daughter reports that she had atrial fibrillation and was on Eliquis for about 2 months last year but then was taken off of it as per cardiology as it was decided she had lone A. fib from the stress of a previous hospitalization for UTI at that time Stroke has been ruled out, but with TIA as above -Started therapeutic dosing of Lovenox and now will transition to Eliquis as she is taking p.o. transfer to medical floor today -Will defer echocardiogram until resolution of Covid-recommend either as an outpatient or later this admission (6) COVID-19 virus infection: Diagnosed on 09/25, has not really had many symptoms at all except for poor appetite as per daughter and some altered mental status at times which may have been from Covid versus UTI Precautions recommended until day 14 as per recommendations of infection motors and controls tester-last day would be 10/09 Chest x-ray without pneumonia, she is not hypoxic (7) Recurrent UTI: As above, has had 10 UTIs in the last year all with ensuing metabolic encephalopathy as per daughter Needs follow-up with urology as an outpatient (8) HTN (hypertension), benign: Blood pressure is now elevated Restarting home amlodipine, lisinopril Continue home metoprolol (9) Hyperlipidemia: Continue statin Lipid panel as above-we will increase intensity of atorvastatin to 40 mg given the TIA (10) Osteopenia: Noted With history of pelvic and hip fractures Continue vitamin D (11) Bipolar disorder: Continue home meds of sertraline, bupropion, lithium Check lithium level in the morning (12) DVT prophylaxis: Eliquis, SCDs Disposition-continued stay on PCU telemetry, but improving, will need to go back to acute rehab in the next 2 days or so PT/OT evaluations appreciated-recommend rehab Full code as per daughter Discussed her care with her daughter on 10/08 Admission and Anticipated Discharge Date Admission Date: October 05, 2020 Subjective patient resting in bed, no new issues she remains a little confused, thought she was at "rehab" I explained she was in the hospital reviewed the chart including notes, CM notes, vitals, labs plan is to return to [facility] for her TIA diagnosis urine culture still just growing Streptococcus species, suspected to be Enterococcus blood cultures without growth called her daughter and provided an update, questions answered Review of Systems Review of Systems: All systems reviewed & are unremarkable except as noted in Subjective Constitutional: + fatigue and + weakness; no fever, no chills and no sweats Respiratory: no cough and no dyspnea Cardiovascular: no chest pain and no edema Gastrointestinal: + early satiety; no abdominal pain, no nausea, no vomiting, no constipation and no diarrhea/loose stools Musculoskeletal: + muscle weakness Neurologic: + confusion Physical Exam Constitutional: well developed, + frail appearing and cooperative; no acute distress Neck: trachea midline, no thyromegaly Respiratory: normal respiratory effort, lungs clear to auscultation Cardiovascular: RRR, no murmur, no edema Gastrointestinal (Abdomen): normal bowel sounds, soft, nontender, no hepatosplenomegaly Musculoskeletal: Head/Neck/Chest: normocephalic, head atraumatic and neck supple Extremities: extremities normal to inspection and + abnormal strength (generalized weakness) Skin: no rashes, warm and dry Neurologic: normal touch/pain/proprioception, CN's II-XI intact bilaterally, moves all extremities and awake; no focal motor deficits Psychiatric: Orientation: alert, oriented to person and cooperative; + not oriented to place and + not oriented to time Lymphatic: no cervical or axillary lymphadenopathy Results & Data Results & Data ([facility]) Vital Signs (Past 12 Hours) Vital Signs Temp Pulse Pulse Resp BP BP Pulse Ox 10/08/20 07:47 36.4 C L 77 19 164/80 H 98 10/08/20 04:29 36.5 C 72 18 185/85 H 189/88 H 96 10/08/20 00:58 76 Laboratory Results Laboratory Results - last 24 hr 10/08/20 10/08/20 10/08/20 09:48 09:48 09:48 WBC 6.11 RBC 3.86 L Hgb 11.0 L Hct 35.1 L MCV 90.9 MCH 28.5 MCHC 31.3 L RDW Std Deviation 48.3 H RDW Coeff of Arnav 14.4 Plt Count 210 MPV 9.0 Immature Gran % (Auto) 0.5 Neut % (Auto) 84.1 Lymph % (Auto) 9.0 [place] % (Auto) 4.9 Eos % (Auto) 1.3 Baso % (Auto) 0.2 Neut # (Auto) 5.14 Lymph # (Auto) 0.55 L [place] # (Auto) 0.30 Eos # (Auto) 0.08 Baso # (Auto) 0.01 Immature Gran # (Auto) 0.03 H Sodium 143 Potassium 3.5 Chloride 112 H Carbon Dioxide 26 Anion Gap 5.0 BUN 6 L Creatinine 0.53 L Est Cr Clr Drug Dosing 78.6 Est GFR ( Amer) 106.1 Est GFR (Non-Af Amer) 91.6 BUN/Creatinine Ratio 10.7 Glucose 76 Calcium 8.7 Colby 0.3 L Medications Administered Current Inpatient Medications Acetaminophen (Acetaminophen 325 Mg Tab) 650 mg PO Q4H PRN PRN Reason: Pain Stop: 11/04/20 19:15 Amlodipine Besylate (Amlodipine Besylate 5 Mg Tab) 10 mg PO QAM [facility] Stop: 11/08/20 08:59 Apixaban (Apixaban 5 Mg Tablet) 5 mg PO BID [facility] Stop: 11/07/20 08:59 Last Admin: 10/08/20 08:46 Dose: 5 mg Documented by: Ascorbic Acid (Ascorbic Acid 500 Mg Tab) 500 mg PO BID [facility] Stop: 11/04/20 20:59 Last Admin: 10/08/20 08:49 Dose: 500 mg Documented by: Atorvastatin Calcium (Atorvastatin 40 Mg Tab) 40 mg PO PM [facility] Stop: 11/06/20 21:59 Last Admin: 10/07/20 23:23 Dose: 40 mg Documented by: Bisacodyl (Bisacodyl 10 Mg Supp) 10 mg MO DAILY PRN PRN Reason: Constipation Stop: 11/04/20 19:15 Bupropion HCl (Bupropion Xl 300 Mg Tabcr) 300 mg PO QAM [facility] Stop: 11/05/20 08:59 Last Admin: 10/08/20 08:50 Dose: 300 mg Documented by: Diazepam (Diazepam 2 Mg Tablet) 2 mg PO QID PRN PRN Reason: Anxiety Stop: 11/04/20 19:15 Docusate Sodium (Docusate Sodium 100 Mg Cap) 100 mg PO BID [facility] Stop: 11/04/20 20:59 Last Admin: 10/08/20 08:47 Dose: 100 mg Documented by: Famotidine (Famotidine 20 Mg Tab) 20 mg PO [facility] Stop: 11/05/20 08:59 Last Admin: 10/08/20 08:48 Dose: 20 mg Documented by: Ampicillin Sodium/Sulbactam Sodium 3,000 mg/ Sodium Chloride 108 mls @ 200 mls/hr IV Q6H [facility]; Protocol Stop: 10/16/20 21:59 Last Infusion: 10/08/20 10:25 Dose: Infused Documented by: Lisinopril (Lisinopril 20 Mg Tab) 20 mg PO [facility] Stop: 11/07/20 08:59 Last Admin: 10/08/20 08:52 Dose: 20 mg Documented by: Colby Carbonate (Colby Carbonate 300 Mg Tab) 300 mg PO HS [facility] Stop: 11/04/20 20:59 Last Admin: 10/07/20 21:41 Dose: 300 mg Documented by: Magnesium Hydroxide (Magnesium Hydroxide Susp 30 Ml Udc) 30 ml PO DAILY PRN PRN Reason: Constipation Stop: 11/04/20 19:36 Metoprolol Tartrate (Metoprolol Tartrate 25 Mg Tab) 25 mg PO BID [facility] Stop: 11/05/20 08:59 Last Admin: 10/08/20 08:47 Dose: 25 mg Documented by: Metoprolol Tartrate (Metoprolol Tartrate 1 Mg/Ml Vial) 5 mg IV Q6 PRN PRN Reason: HR>120 Stop: 11/05/20 17:59 Ondansetron HCl (Ondansetron Inj 2 Mg/Ml 2 Ml Vial) 4 mg IV Q6H PRN PRN Reason: Nausea Stop: 11/04/20 19:15 Pantoprazole Sodium (Pantoprazole 40 Mg Tab) 40 mg PO [facility] Stop: 11/05/20 08:59 Last Admin: 10/08/20 08:49 Dose: 40 mg Documented by: Polyethylene Glycol (Polyethylene (Miralax) 17 Gm Pack) 17 gm PO DAILY PRN PRN Reason: Constipation Stop: 11/04/20 19:15 Polyethylene Glycol (Polyethylene (Miralax) 17 Gm Pack) 17 gm PO DAILY [facility] Stop: 11/07/20 08:59 Last Admin: 10/08/20 08:48 Dose: 17 gm Documented by: Senna/Docusate Sodium (Docusate Sodium/Senna 50/8.6mg Tab) 1 tab PO QDL [facility] Stop: 11/07/20 11:29 Last Admin: 10/08/20 10:25 Dose: Not Given Documented by: Sertraline HCl (Sertraline Hcl 100 Mg Tablet) 100 mg PO QAM [facility] Stop: 11/05/20 08:59 Last Admin: 10/08/20 08:52 Dose: 100 mg Documented by: Vitamin D (Cholecalciferol 1,000 Units 25 Mcg Tab) 2,000 units PO DAILY [facility] Stop: 11/05/20 08:59 Last Admin: 10/08/20 08:50 Dose: 2,000 units Documented by: PG Care Time/CCT Total # of Minutes Spent Total Time Spent with Patient: Total time spent is greater than 50% in coordination of care (as documented) at patient's floor/unit and/or counseling patient: Coding Level of Care Code 30709 Subseq Hosp Care Lvl 3 Diagnoses TIA (transient ischemic attack) G45.9 Dental infection K04.7 Acute metabolic encephalopathy G93.41 Urinary tract infection N39.0 Hematuria presence: without hematuria Urinary tract infection type: site unspecified Atrial fibrillation I48.91 COVID-19 virus infection U07.1 Recurrent UTI N39.0 HTN (hypertension), benign I10 Hyperlipidemia E78.5 Osteopenia M85.80 Bipolar disorder F31.9 DVT prophylaxis Z29.9 (1) Urinary tract infection Hematuria presence: without hematuria Urinary tract infection type: site unspecified Qualified Code(s): N39.0 - Urinary tract infection, site not specified
[2020-10-08] MEDS: ATORVASTATIN 40 MG TAB PO SCH (20:48)
[2020-10-08] MEDS: LITHIUM CARBONATE 300 MG TAB PO SCH (20:49)
[2020-10-09] MEDS: AMPICILLIN/SULBACTAM SOD 3,000 MG in 0.9 % SODIUM CHLORIDE 100 ML IV SCH ×2 (04:29→09:56)
[2020-10-09] MEDS: POLYETHYLENE (MIRALAX) 17 GM PACK PO SCH (07:38)
[2020-10-09] MEDS: DOCUSATE SODIUM 100 MG CAP PO SCH (07:38)
[2020-10-09] MEDS: METOPROLOL TARTRATE 25 MG TAB PO SCH (08:03)
[2020-10-09] MEDS: FAMOTIDINE 20 MG TAB PO SCH (08:03)
[2020-10-09] MEDS: SERTRALINE HCL 100 MG TABLET PO SCH (08:04)
[2020-10-09] MEDS: PANTOprazole 40 MG TAB PO SCH (08:04)
[2020-10-09] MEDS: ASCORBIC ACID 500 MG TAB PO SCH (08:04)
[2020-10-09] MEDS: lisinopril 20 MG TAB PO SCH (08:04)
[2020-10-09] MEDS: buPROPion XL 300 MG TABCR PO SCH (08:05)
[2020-10-09] MEDS: APIXABAN 5 MG TABLET PO SCH (08:06)
[2020-10-09] MEDS: CHOLECALCIFEROL 1,000 UNITS 25 MCG TAB PO SCH (08:06)
[2020-10-09] MEDS ORDERED: amLODIPine BESYLATE 5 MG TAB PO SCH (09:00)
[2020-10-09] MEDS: DOCUSATE SODIUM/SENNA 50/8.6MG TAB PO SCH (10:29)
--- NOTE | 2020-10-09 13:07 | Discharge Summary ---
Date of Service October 09, 2020 Admission HPI Per Admitting Provider This patient is a 75-year-old female with a history of spinal fusion surgery in the end of August, paroxysmal atrial fibrillation no longer on anticoagulation, HTN, osteopenia, depression and bipolar disorder, pneumonia, and severe numerous recurrent UTIs. She had spinal fusion surgery the beginning of August and went to [facility] rehab in [place] for 2 weeks. She then went home for 24 hours and returned to the hospital with altered mental status and had a UTI for which she was admitted. She then was discharged to [facility] in [facility] where she has been for the 3 weeks. She developed Covid- 19 with a positive test on 09/25. She was asymptomatic with this for the most part as per notes from the rehab without fevers or hypoxia, however she has had some altered mental status intermittently there and confusion. Her daughter reports to me on the phone that the patient is perfectly mentally clear when she does not have a urinary tract infection, however she has had 10 urinary tract infections in the last year alone. She has been in and out of the hospital multiple times with this. The daughter also reports and insists that the patient has been extensively tested for dementia and does not have dementia including having brain imaging and neuropsychological testing at her doctor in [place] where she resided until 1 year ago. She was recently treated for an ESBL E. coli UTI with levofloxacin a few weeks ago and then also had an Enterococcus UTI at the rehab where she was being treated with amoxicillin for the last couple of days. Today, around 11 AM, she was noted to have right-sided weakness and a right- sided facial droop. The daughter reports the patient always has somewhat of a right facial droop but weakness on the right would be new. She was brought in as a stroke alert to the ER and was completely confused. She is not able to tell me any history at all but does denies pain anywhere, specifically chest pain and headache. Because she was on subcu Lovenox for DVT prophylaxis and because of the rapid improvement in right-sided weakness-she was able to move the right side of her body when she got in the ER-she was not a candidate for TPA as per telemetry stroke consultation. CT of the head was negative, CT angiogram of the head neck was negative in the ER. She was found to have UTI and abnormal urinalysis. Her ECG was with possible rapid atrial fibrillation versus accelerated junctional rhythm and PACs with some lateral ST depression. As per the ER doctor, she did have significant improvement in her mental status with being given IV fluids. She was also given IV meropenem for her UTI. Her Covid test was still positive at this time. Ultimately, the telemetry stroke neurologist felt this was more likely consistent with a toxic metabolic syndrome rather than a stroke. She will be admitted for stroke work-up and continued treatment of her acute metabolic encephalopathy and UTI as well as for suspected rapid atrial fibrillation. Principal Diagnosis TIA, COVID infection Discharge Exam Constitutional WD/WN, vitals as above Respiratory normal respiratory effort, lungs clear to auscultation Cardiovascular RRR, no murmur, no edema Gastrointestinal (Abdomen) normal bowel sounds, soft, nontender, no hepatosplenomegaly Musculoskeletal generalized weakness Skin no rashes, warm and dry Neurologic CN's II-XI intact bilaterally, moves all extremities and awake Psychiatric A+Ox3, euthymic affect Discharge Data Allergies Allergy/AdvReac Type Severity Reaction Status Date / Time aspirin Allergy Unknown Unverified 10/05/20 15:59 Consultations 10/05/20 14:30 ED Decision to Admit Stat 10/05/20 19:16 Consult Case Management - Discharge Planning Routine Consult Neurology Routine Ordered Studies 10/05/20 12:27 CT angio head w con Stat CT angio neck with con Stat CT head/brain wo con Stat 10/05/20 16:36 MR brain wo con Routine Hospital Course (1) TIA (transient ischemic attack): Presented with acute onset of right-sided weakness and right-sided facial droop while working with physical therapy at the rehab Right-sided weakness improved rapidly and is now completely resolved, right facial droop may be chronic as per daughter, and is also related to dental infection as below - patient's smile is equal bilaterally though she appears to have droop at rest CT angiogram head and neck negative CT head negative Blood pressures were actually low when she arrived Telemetry stroke consult did not recommend TPA as she had been on Lovenox SQ and had rapid improvement of symptoms MRI brain negative for stroke With altered mental status which may be due to UTI//dental infection/metabolic encephalopathy which is now improving Discussed care with neurologist who did not see her due to Covid precautions- she most likely had a TIA and recommended therapeutic anticoagulation for her atrial fibrillation and no need for antiplatelet -Initially anticoagulated with Lovenox full dose 1 mg/KG every 12 hours however now she is reliably taking p.o.- transitioned to Eliquis at 5 mg p.o. BID Speech therapy consultation, PT/OT evaluations appreciated Neuro consult appreciated Lipid panel with total cholesterol 120, LDL 53, HDL 35-continue atorvastatin but increase to high intensity dose of 40 mg once daily Hemoglobin A1c normal at 5.0% -Previously held home antihypertensives for permissive hypertension, but now stroke ruled out-will control blood pressure by adding meds back on (2) Dental infection: Noted to have right-sided cheek swelling on admission thought to be contributing to worsening right facial droop Swelling is now down and since her encephalopathy is improved and she is cooperative-she has a symmetrical smile on examination Dr. Silveira was able to look inside her mouth adequately on 10/07 and she has a missing right mandibular molar with pus coming out of the empty socket Very poor dentition and daughter reports patient has not seen a dentist in 20 years -Continue Unasyn, change to Augmentin on discharge - will continue for 2 weeks but may need longer but will leave that to her follow up Recommend follow-up outpatient with [facility], Dr. Nehemiah Dawson now that she is off COVID precautions (3) Acute metabolic encephalopathy: Secondary to UTI and possibly dental infection as stroke now ruled out Treating UTI and dental infection with Unasyn Has a long history of encephalopathy as per daughter every time she has UTI could be COVID delirium At baseline, daughter reports she is completely mentally clear "just like you and I." (4) Urinary tract infection: Abnormal urinalysis Has a history of ESBL E. coli UTI and recent Enterococcus UTI Cathed specimen urine culture here growing 10,000 CFU Enterococcus - resistant to cipro which patient is on for chronic prophylaxis Has Khalil catheter that was placed in the ER when she was encephalopathic- removed 10/07 Unasyn and then Augmentin Needs follow-up with urology as an outpatient after discharge for recurrent UTIs Holding home prophylactic Cipro (5) Atrial fibrillation: With ongoing rapid atrial fibrillation on ECG and on telemetry for the first 2 days of admission Converted to normal sinus rhythm on the evening of 10/06 No chest pain, troponin is negative -Continue metoprolol 25 mg p.o. twice daily for rate control Daughter reports that she had atrial fibrillation and was on Eliquis for about 2 months last year but then was taken off of it as per cardiology as it was decided she had lone A. fib from the stress of a previous hospitalization for UTI at that time Stroke has been ruled out, but with TIA as above -Started therapeutic dosing of Lovenox and now will transition to Eliquis as she is taking p.o. transfer to medical floor today -Will defer echocardiogram until resolution of Covid-recommend outpatient follow up (6) COVID-19 virus infection: Diagnosed on 09/25, has not really had many symptoms at all except for poor appetite as per daughter and some altered mental status at times which may have been from Covid versus UTI Precautions recommended until day 14 as per recommendations of infection decay control operator-last day would be 10/09 Chest x-ray without pneumonia, she is not hypoxic (7) Recurrent UTI: As above, has had 10 UTIs in the last year all with ensuing metabolic encephalopathy as per daughter Needs follow-up with urology as an outpatient (8) HTN (hypertension), benign: Restarted home amlodipine, lisinopril as patient is running hypertensive Continue home metoprolol (9) Hyperlipidemia: Continue statin Lipid panel as above-we will increase intensity of atorvastatin to 40 mg given the TIA (10) Osteopenia: Noted With history of pelvic and hip fractures Continue vitamin D (11) Bipolar disorder: Continue home meds of sertraline, bupropion, lithium [place] level low - follow up with neurology (12) DVT prophylaxis: Eliquis, SCDs Disposition- to [facility] Total Time Total Time Spent Total Time Spent (In Minutes): greater than 30 minutes Discharge Plan Discharge Items Patient Disposition: Transfer Inpatient Rehab Fac Reason For Visit: SUSPECT STROKE, UTI Discharge Diagnosis: TIA, UTI Condition on Discharge: Good Activity: Resume your previous activity Non-emergency contact: Primary Care Provider Call non-emergency contact if: you have any medication questions Follow-up/Referrals: [facility] [Primary Care Provider] - Diet: Heart Healthy Diet Comment: Minced and moist texture Addtl Attending Provider Instructions: (1) TIA (transient ischemic attack): Presented with acute onset of right-sided weakness and right-sided facial droop while working with physical therapy at rehab Right-sided weakness improved rapidly and is now completely resolved, right fa cial droop may be chronic as per daughter, and is also related to dental infection as below CT angiogram head and neck negative CT head negative Blood pressures were actually low when she arrived Telemetry stroke consult did not recommend TPA as she had been on Lovenox SQ and had rapid improvement of symptoms MRI brain negative for stroke With altered mental status which may be due to UTI//dental infection/metabolic encephalopathy which is now improving Discussed care with neurologist who did not see her due to Covid precautions- she most likely had a TIA and recommended therapeutic anticoagulation for her atrial fibrillation and no need for antiplatelet Continue Eliquis at 5 mg p.o. BID Speech therapy consultation, PT/OT evaluations appreciated Lipid panel with total cholesterol 120, LDL 53, HDL 35-continue atorvastatin but increase to high intensity dose of 40 mg once daily Hemoglobin A1c normal at 5.0% (2) Dental infection: Noted to have right-sided cheek swelling on admission thought to be contributing to worsening right facial droop Swelling is now down and since her encephalopathy is improved and she is cooperative-she has a symmetrical smile on examination Missing right mandibular molar with pus coming out of the empty socket Very poor dentition and daughter reports patient has not seen a dentist in 20 years - Unasyn, changed to Augmentin on discharge Recommend close follow-up this week with [facility], Dr. Nehemiah Dawson (3) Acute metabolic encephalopathy: Resolved Secondary to UTI and possibly dental infection as stroke now ruled out Treating UTI and dental infection with Unasyn and then Augmentin on discharge Has a long history of encephalopathy as per daughter every time she has UTI could be COVID delirium At baseline, daughter reports she is completely mentally clear "just like you and I." (4) Urinary tract infection: Abnormal urinalysis Has a history of ESBL E. coli UTI and recent Enterococcus UTI Cathed specimen urine culture here growing 10,000 CFUEnterococcus infection Needs follow-up with urology as an outpatient after discharge for recurrent UTIs Holding home prophylactic Cipro - the Enterococcus in her urine is resistant (5) Atrial fibrillation: With ongoing rapid atrial fibrillation on ECG and on telemetry for the first 2 days of admission Converted to normal sinus rhythm on the evening of 10/06 No chest pain, troponin is negative -Continue metoprolol 25 mg p.o. twice daily for rate control Stroke has been ruled out, but with TIA as above -Started Eliquis as she is taking p.o. -Will defer echocardiogram until resolution of Covid-recommend as outpatient (6) COVID-19 virus infection: Diagnosed on 09/25, has not really had many symptoms at all except for poor appetite as per daughter and some altered mental status at times which may have been from Covid versus UTI Precautions recommended until day 14 as per recommendations of infection decay control operator-last day would be 10/09 Chest x-ray without pneumonia, she is not hypoxic (7) Recurrent UTI: As above, has had 10 UTIs in the last year all with ensuing metabolic encephalopathy as per daughter Needs follow-up with urology as an outpatient (8) HTN (hypertension), benign: Continue amlodipine, lisinopril, metoprolol (9) Hyperlipidemia: Continue statin Lipid panel as above-we will increase intensity of atorvastatin to 40 mg given the TIA (10) Osteopenia: Noted With history of pelvic and hip fractures Continue vitamin D (11) Bipolar disorder: Continue home meds of sertraline, bupropion, lithium [place] level was low at 0.3 - follow up with neurology (12) 4 cm Thyroid nodule on neck CTA - follow up with pcp Pending Studies at Discharge: No Stand-Alone Forms: My [facility] Skilled Items Patient informed of condition?: Yes DNR: No Discharge Level of Care: Acute rehab Communicable Disease: No Discharge Prognosis: Stable Lines: None Urinary Catheter: No Medications and DC Order Prescriptions: New atorvastatin 40 mg Tablet 40 mg PO PM Qty: 30 RF: 0 Eliquis 5 mg Tablet 5 mg PO BID Qty: 60 RF: 0 amoxicillin-pot clavulanate [Augmentin] 875-125 mg tablet 1 tab PO BID Qty: 28 RF: 0 Continued docusate sodium 100 mg Capsule 100 mg PO BID RF: 0 magnesium hydroxide [Milk Of Magnesia Concentrated] 2,400 mg/10 mL Suspension 30 ml PO DAILY PRN (Reason: Constipation) RF: 0 bisacodyl 10 mg Suppository 10 mg MD DAILY PRN (Reason: Constipation) RF: 0 acetaminophen [Tylenol] 325 mg Tablet 650 mg PO Q4H PRN (Reason: Pain) RF: 0 ascorbic acid (vitamin C) 500 mg Tablet 500 mg PO BID RF: 0 bupropion HCl 150 mg Tablet Extended Release 24 Hr 300 mg PO QAM RF: 0 cholecalciferol (vitamin D3) 50 mcg (2,000 unit) Tablet 50 mcg PO DAILY RF: 0 diazepam 2 mg Tablet 2 mg PO QID PRN (Reason: Anxiety) RF: 0 famotidine 20 mg Tablet 20 mg PO QAM RF: 0 lisinopril 20 mg Tablet 20 mg PO QAM RF: 0 lithium carbonate 300 mg Tablet 300 mg PO HS RF: 0 melatonin 3 mg Tablet 3 mg PO HS RF: 0 pantoprazole 40 mg Tablet,Delayed Release (Dr/Ec) 40 mg PO QAM RF: 0 sertraline 100 mg Tablet 100 mg PO QAM RF: 0 amlodipine 10 mg Tablet 10 mg PO QAM RF: 0 ondansetron HCl 4 mg Tablet 4 mg PO Q4H PRN (Reason: Nausea) RF: 0 metoprolol tartrate 25 mg Tablet 25 mg PO BID RF: 0 polyethylene glycol 3350 17 gram/dose Powder 17 g PO DAILY RF: 0 guaifenesin [Mucinex] 600 mg Tablet Extended Release 12hr 600 mg PO BID RF: 0 sennosides-docusate sodium [Senokot-S] 8.6-50 mg Tablet 1 tab-cap PO .@LUNCH RF: 0 Discontinued atorvastatin 10 mg Tablet 10 mg PO PM RF: 0 zinc sulfate 220 mg Capsule 220 mg PO QAM RF: 0 enoxaparin 40 mg/0.4 mL Syringe 40 mg SUBCUT QPM RF: 0 ciprofloxacin HCl [Cipro] 250 mg Tablet 250 mg PO QAM RF: 0 amoxicillin 250 mg Capsule 250 mg PO TID RF: 0 nitrofurantoin macrocrystal 100 mg Capsule 100 mg PO HS RF: 0 Discharge Orders: Discharge Order (Routine); Ordered 10/09/20 Ordered By: Dhara Leal/Other Patient Handouts: Understanding Urinary Tract ... Admission Data Admit Date/Time: 10/05/20 17:03 Attending Provider: Mushtaq Sandoval Admit Provider: Renetta Silveira [facility] Other Providers: John Beatty Other Interventions: Discharge Summary Assessment (RN) Last Done: 10/09/20 13:36 Supervising Physician Co-Signing Physician Notes Patient seen and examined on the day of discharge. I agree with the discharge summary by Dhara FINE. I have reviewed the chart including labs, imaging and plans for discharge. patient will go to rehab today she is doing well, eating, no acute issues - TIA: will treat with full anticoagulation in setting of atrial fibrillation secondary stroke prevention per neurology - Dental infection: purulent drainage from socket of prior tooth, mandible treated with Augmentin recommend follow up with oral surgeon see discharge summary for full details Coding Level of Care Code D/C Day Management >30 mins Diagnoses TIA (transient ischemic attack) G45.9 Dental infection K04.7 Acute metabolic encephalopathy G93.41 Urinary tract infection N39.0 Hematuria presence: without hematuria Urinary tract infection type: site unspecified Atrial fibrillation I48.91 COVID-19 virus infection U07.1 Recurrent UTI N39.0 HTN (hypertension), benign I10 Hyperlipidemia E78.5 Osteopenia M85.80 Bipolar disorder F31.9 DVT prophylaxis Z29.9
== END 2020-10-09 15:25 | DRG 69 ==
LOC: ED 12:30 → 2S 17:03 → SUATTDRO 17:03 → 2S 18:14 → 3W 10-08 16:27
DX: F31.9 Bipolar disorder, unspecified; B95.2 Enterococcus as the cause of diseases classified elsewhere; U07.1 COVID-19; G45.9 Transient cerebral ischemic attack, unspecified; N17.9 Acute kidney failure, unspecified; N39.0 Urinary tract infection, site not specified; Z79.899 Other long term (current) drug therapy; I48.0 Paroxysmal atrial fibrillation; K04.7 Periapical abscess without sinus; G93.41 Metabolic encephalopathy; Z88.6 Allergy status to analgesic agent; E78.5 Hyperlipidemia, unspecified; E04.1 Nontoxic single thyroid nodule; I10 Essential (primary) hypertension; M85.80 Other specified disorders of bone density and structure, unspecified site